=== PATIENT | male | born 1935 | race Caucasian/White ===

== ENCOUNTER → 2020-11-07 11:23 | Outpatient (BNVA) | payer MEDICARE, OTHER, SELFPAY | PROVIDERS: Visit Provider Urology | DX: Z13.89 Encounter for screening for other disorder (principal) | CPT/HCPCS: Q3014 ==

== ENCOUNTER 2022-01-14 10:09 | Outpatient (REF) | payer MEDICARE, OTHER, SELFPAY ==
[2022-01-14 11:37] LABS: PSA,Total (Free>4and<10) 0.23 ng/mL (0.00-4.00)
== END 2022-01-14 10:10 | disposition home or self-care (01) ==
LOC: HO.10HDL 10:09
PROVIDERS: Visit Provider Urology
DX: C61 Malignant neoplasm of prostate (principal); Z12.5 Encounter for screening for malignant neoplasm of prostate
CPT/HCPCS: 36415; 84153

== ENCOUNTER → 2022-01-21 13:30 | Outpatient (BNVA) | payer MEDICARE, OTHER, SELFPAY | PROVIDERS: Visit Provider Urology | DX: R97.21 Rising PSA following treatment for malignant neoplasm of prostate (principal); C61 Malignant neoplasm of prostate; R33.9 Retention of urine, unspecified; Z79.899 Other long term (current) drug therapy | CPT/HCPCS: Q3014 ==

== ENCOUNTER 2022-05-18 12:30 | Outpatient (REF) | payer MEDICARE, OTHER, SELFPAY ==
[2022-05-18 14:18] LABS: Prostate Specific Antigen 0.16 ng/mL (<0.05-4.0)
== END 2022-05-18 12:31 | disposition home or self-care (01) ==
LOC: HO.10HDL 12:30
PROVIDERS: Visit Provider Urology
DX: Z12.5 Encounter for screening for malignant neoplasm of prostate (principal); C61 Malignant neoplasm of prostate
CPT/HCPCS: 36415; 84153

== ENCOUNTER → 2022-05-26 13:03 | Outpatient (BNVA) | payer MEDICARE, OTHER, SELFPAY | PROVIDERS: PCP Internal Medicine Endocrinology, Diabetes & Metabolism; Visit Provider Urology | DX: C61 Malignant neoplasm of prostate (principal) | CPT/HCPCS: 99212 ==

== ENCOUNTER 2022-09-21 12:48 | Outpatient (REF) | payer MEDICARE, OTHER, SELFPAY ==
[2022-09-21 14:44] LABS: Prostate Specific Antigen 0.22 ng/mL (<0.05-4.0)
== END 2022-09-21 12:49 | disposition home or self-care (01) ==
LOC: HO.10HDL 12:48
PROVIDERS: Visit Provider Urology
DX: Z12.5 Encounter for screening for malignant neoplasm of prostate (principal); C61 Malignant neoplasm of prostate
CPT/HCPCS: 36415; 84153

== ENCOUNTER → 2022-10-01 14:54 | Outpatient (BNVA) | payer MEDICARE, OTHER, SELFPAY | PROVIDERS: PCP Internal Medicine Endocrinology, Diabetes & Metabolism; Visit Provider Urology | DX: R97.21 Rising PSA following treatment for malignant neoplasm of prostate (principal) | CPT/HCPCS: Q3014 ==

== ENCOUNTER 2023-01-29 11:05 | Outpatient (REF) | payer MEDICARE, OTHER, SELFPAY | END 2023-01-29 11:06 | disposition home or self-care (01) | LOC: HO.10HDL 11:05 | PROVIDERS: Visit Provider Urology | DX: Z12.5 Encounter for screening for malignant neoplasm of prostate (principal); C61 Malignant neoplasm of prostate | CPT/HCPCS: 36415; 84153 ==

== ENCOUNTER 2023-02-03 13:39 | Outpatient (AMB) | payer MEDICARE, OTHER, SELFPAY ==
--- NOTE | 2023-02-03 13:48 | A.OFFVIS_ITS ---
Intake Intake Visit Reasons: 4M PSA(set) Intake Note: Patient is present for Telephone psa Urology Med:Finasteride, Doxazosin Antibiotic Allergy: None Blood Thinner: Aspirn, Apixaban Allergies dabigatran etexilate [From PRADAXA] Allergy (Intermediate, Verified 02/05/23 09:02) DIZZINESS AND SHORTNESS OF BREATH HPI HPI Comments History of Present Illness Details [place] very pleasant male. He is a patient of Dr. Anton. He is seen for the following urologic issues - prostate cancer Telemedicine Evaluation 15 min Consultation DoxOnApp Amarilis Video attempted Moved to intermittent therapy. Every other month finasteride. PSA staying relatively stable Prostate cancer: Initial therapy 1998 prostatectomy, slight rise in PSA has been managed with intermittent finasteride Prostate cancer was diagnosed January 1999. Diagnosis was reached by needle biopsy, for elevated PSA, PSA at diagnosis 6.9. The [place] grade is 3+4 = 7. TNM Classification of Malignant Tumours (TNM) T2b. The D'Susana (NCCN) risk category is Intermediate Risk (PSA 10-20, Gl 7, T2). Initial therapy included Primary treatment, Prostatectomy (RRP/Robotic) , Additional treatment, Observation. Recent labs included a PSA (prostate-specific antigen) September 2015 , < 0.1, February 2016 0.11, Aug 2016 0.15, Feb 2017 0.145 08/29 0.165, 03/29 0.23 - start finasteride 07/30 0.14, 01/27 0.12, 04/29 0.12 - off finasteride - 04/30 0.16, 10/30 0.32, 05/01 0.38 restart finasteride, 01/30 0.2, 06/02 0.16, 10/01 0.22 off finasteride, 01/31 0.4 Therapeutic plan: Continue with surveillance [facility] Medical History Afib Cerebral infarction Cerebrovascular accident Coronary artery disease Erectile dysfunction following radical prostatectomy Persistent atrial fibrillation Prostate cancer Rising PSA following treatment for malignant neoplasm of prostate Surgical History Hx of aortic aneurysm repair Hx of hernia repair Hx of inguinal hernia repair Hx of prostatectomy Hx of right coronary artery stent placement Family History Unknown No problems noted. Social History Household Members: None Housing: House Do you presently have visiting nurse or other home services: No Alcohol intake: current Alcohol intake frequency: a few times a month Alcohol type: wine Patient Tobacco Use Status: Former Tobacco user Advance Directives Date on File: 12/24/20 service: No Current occupational status: retired Review of Systems Const All systems reviewed & are unremarkable except as noted in HPI and below Reports no additional complaints Resp Reports no additional complaints GI Reports no additional complaints Reports as per HPI Musc Reports no additional complaints Physical Exam Telemedicine evaluation Appropriate responses Regular breathing rate and rhythm HEENT Head: Yes normal to inspection Ears: hearing grossly normal bilaterally Eyes General: appearance normal, both eyes and all related structures Neck Neck: Yes normal visual inspection Chest Chest palpation & inspection: normal inspection of the chest Resp Effort & Inspection: normal respiratory effort and able to speak in complete sentences Assessment & Plan Assessment & Plan (1) Prostate cancer: Comment: doubling time longer than 6 months Code(s): C61 - Malignant neoplasm of prostate Plan Continue Q 6 month review Patient Instructions: Imaging studies, laboratory and physical exam results were discussed and reviewed in detail. No major barriers to patient understanding were identified. An opportunity to ask questions regarding the treatment plan was provided. All questions were answered. The patient expressed understanding and agreement with the above treatment plan. The patient is aware they should contact our office by phone for worsening of their current condition or the appearance of new urologic symptoms. Compliance is encouraged with any medications and followup testing that is ordered. It is a privilege to participate in the urologic care of your patient. If you have any questions or concerns regarding treatment for the above conditions, or other urologic issues, please do not hesitate to contact me. The office telephone contact is [phone]. This note is constructed using voice recognition software. While every effort has been made to ensure accuracy meal miller errors may have been included. Yours sincerely, Dr Bon Deshpande MD, [facility] - Urology Providers of Expert, Compassionate Care for the Genitourinary System Telehealth Telehealth Location of provider rendering services: practice address Location of patient: address on file Patient Identification confirmed using: Name, : Yes Telehealth method: video Patient verbally consented to treatment: Yes Patient verbally consented to billing insurance company: Yes Patient informed of any privacy concerns related to visit: Yes Coding Level of Care Code Tele Est Pt Level 3 (79739) Diagnoses Prostate cancer C61
== END 2023-02-03 14:20 | disposition left against medical advice (07) ==
LOC: HO.HUSH 13:39
PROVIDERS: PCP Internal Medicine Endocrinology, Diabetes & Metabolism; Visit Provider Urology
DX: C61 Malignant neoplasm of prostate (principal)
CPT/HCPCS: 99213

== ENCOUNTER 2023-02-05 09:01 | Outpatient (AMB) | payer MEDICARE, OTHER, SELFPAY ==
--- NOTE | 2023-02-05 09:01 | MHC.OFFVIS ---
Intake Intake Visit Reasons: 4m/PSA Intake Note: Pt presents as a telehealth appt today for a 4 month PSA follow up Allergies dabigatran etexilate [From PRADAXA] Allergy (Intermediate, Verified 02/05/23 09:02) DIZZINESS AND SHORTNESS OF BREATH HPI HPI Comments History of Present Illness Details [place] very pleasant male. He is a patient of Dr. Anton. He is seen for the following urologic issues - prostate cancer Telemedicine Evaluation 15 min Consultation Doximity Amarilis Video attempted Moved to intermittent therapy. Every other month finasteride. PSA staying relatively stable Prostate cancer: Initial therapy 1998 prostatectomy, slight rise in PSA has been managed with intermittent finasteride Prostate cancer was diagnosed January 1999. Diagnosis was reached by needle biopsy, for elevated PSA, PSA at diagnosis 6.9. The [place] [employer] grade is 3+4 = 7. TNM Classification of Malignant Tumours (TNM) T2b. The D'Susana (NCCN) risk category is Intermediate Risk (PSA 10-20, Gl 7, T2). Initial therapy included Primary treatment, Prostatectomy (RRP/Robotic) , Additional treatment, Observation. Recent labs included a PSA (prostate-specific antigen) September 2015 , < 0.1, February 2016 0.11, Aug 2016 0.15, Feb 2017 0.145 08/29 0.165, 03/29 0.23 - start finasteride 07/30 0.14, 01/27 0.12, 04/29 0.12 - off finasteride - 04/30 0.16, 10/30 0.32, 05/01 0.38 restart finasteride, 01/30 0.2, 06/02 0.16, 10/01 0.22 off finasteride, 01/31 0.4 Therapeutic plan: Continue with surveillance [facility] Medical History Afib Cerebral infarction Cerebrovascular accident Coronary artery disease Erectile dysfunction following radical prostatectomy Persistent atrial fibrillation Prostate cancer Rising PSA following treatment for malignant neoplasm of prostate Surgical History Hx of aortic aneurysm repair Hx of hernia repair Hx of inguinal hernia repair Hx of prostatectomy Hx of right coronary artery stent placement Family History Unknown No problems noted. Social History Household Members: None Housing: House Do you presently have visiting nurse or other home services: No Alcohol intake: current Alcohol intake frequency: a few times a month Alcohol type: wine Patient Tobacco Use Status: Former Tobacco user Advance Directives Date on File: 12/24/20 service: No Current occupational status: retired Review of Systems Const All systems reviewed & are unremarkable except as noted in HPI and below Reports no additional complaints Resp Reports no additional complaints GI Reports no additional complaints Reports as per HPI Musc Reports no additional complaints Physical Exam Telemedicine evaluation Appropriate responses Regular breathing rate and rhythm HEENT Head: Yes normal to inspection Ears: hearing grossly normal bilaterally Eyes General: appearance normal, both eyes and all related structures Neck Neck: Yes normal visual inspection Chest Chest palpation & inspection: normal inspection of the chest Resp Effort & Inspection: normal respiratory effort and able to speak in complete sentences Assessment & Plan Assessment & Plan (1) Rising PSA following treatment for malignant neoplasm of prostate: Code(s): R97.21 - Rising PSA following treatment for malignant neoplasm of prostate (2) Prostate cancer: Comment: doubling time longer than 6 months Code(s): C61 - Malignant neoplasm of prostate Plan Continue to follow Orders: Orders Prostate Specific Antigen 4 Months R97.21 - Rising PSA following treatment for malignant neoplasm of prostate Patient Instructions: Imaging studies, laboratory and physical exam results were discussed and reviewed in detail. No major barriers to patient understanding were identified. An opportunity to ask questions regarding the treatment plan was provided. All questions were answered. The patient expressed understanding and agreement with the above treatment plan. The patient is aware they should contact our office by phone for worsening of their current condition or the appearance of new urologic symptoms. Compliance is encouraged with any medications and followup testing that is ordered. It is a privilege to participate in the urologic care of your patient. If you have any questions or concerns regarding treatment for the above conditions, or other urologic issues, please do not hesitate to contact me. The office telephone contact is [phone]. This note is constructed using voice recognition software. While every effort has been made to ensure accuracy gate shear operator errors may have been included. Yours sincerely, Dr Bon Deshpande MD, [facility] - Urology Providers of Expert, Compassionate Care for the Genitourinary System Telehealth Telehealth Location of provider rendering services: practice address Location of patient: address on file Patient Identification confirmed using: Name, : Yes Telehealth method: video Patient verbally consented to treatment: Yes Patient verbally consented to billing insurance company: Yes Patient informed of any privacy concerns related to visit: Yes Coding Level of Care Code Tele Est Pt Level 3 (56651) Diagnoses Rising PSA following treatment for malignant neoplasm of prostate R97.21 Prostate cancer C61
== END 2023-02-05 09:32 | disposition home or self-care (01) ==
LOC: HO.HUSH 09:01
PROVIDERS: PCP Internal Medicine Endocrinology, Diabetes & Metabolism; Visit Provider Urology
DX: R97.21 Rising PSA following treatment for malignant neoplasm of prostate (principal); C61 Malignant neoplasm of prostate
CPT/HCPCS: 99213

== ENCOUNTER → 2023-02-05 09:01 | Outpatient (BNVA) | payer MEDICARE, OTHER, SELFPAY | PROVIDERS: PCP Internal Medicine Endocrinology, Diabetes & Metabolism; Visit Provider Urology | DX: R97.21 Rising PSA following treatment for malignant neoplasm of prostate (principal); C61 Malignant neoplasm of prostate; N52.31 Erectile dysfunction following radical prostatectomy | CPT/HCPCS: Q3014 ==

== ENCOUNTER 2023-06-07 11:51 | Outpatient (REF) | payer MEDICARE, OTHER, SELFPAY ==
[2023-06-07 14:28] LABS: Prostate Specific Antigen 0.35 ng/mL (<0.05-4.0)
== END 2023-06-07 11:52 | disposition home or self-care (01) ==
LOC: HO.10HDL 11:51
PROVIDERS: Visit Provider Urology
DX: R97.21 Rising PSA following treatment for malignant neoplasm of prostate (principal); Z12.5 Encounter for screening for malignant neoplasm of prostate
CPT/HCPCS: 36415; 84153

== ENCOUNTER 2023-06-08 10:07 | Outpatient (AMB) | payer MEDICARE, OTHER, SELFPAY ==
--- NOTE | 2023-06-08 10:16 | MHC.OFFVIS ---
Intake Intake Visit Reasons: PSA Follow up Intake Note: Patient is Present for Follow Up Urology Medication: Finasteride, Doxazosin, Antibiotic Allergies: None Blood Thinners: Apixaban Allergies dabigatran etexilate [From PRADAXA] Allergy (Intermediate, Verified 02/05/23 09:02) DIZZINESS AND SHORTNESS OF BREATH Medication List - Last Reconciled 06/08/23 by Bon Deshpande MD apixaban 5 mg PO BID carvedilol 6.25 mg PO BID doxazosin 4 mg PO DAILY finasteride 5 mg PO DAILY 90 days latanoprost 0.005% 1 drp ophthalmic (eye) BEDTIME losartan 100 mg PO DAILY netarsudil 0.02% (Rhopressa) 0 drps ophthalmic (eye) omeprazole 20 mg PO BID@0630,1630 simvastatin 40 mg PO BEDTIME HPI HPI Comments History of Present Illness Details [place] very pleasant male. He is a patient of Dr. Anton. He is seen for the following urologic issues - prostate cancer PSA staying flat 0.35 Continue intermittent therapy. Every other month finasteride. PSA staying relatively stable Q 4 month PSA Prostate cancer: Initial therapy 1998 prostatectomy, slight rise in PSA has been managed with intermittent finasteride Prostate cancer was diagnosed January 1999. Diagnosis was reached by needle biopsy, for elevated PSA, PSA at diagnosis 6.9. The [place] grade is 3+4 = 7. TNM Classification of Malignant Tumours (TNM) T2b. The D'Susana (NCCN) risk category is Intermediate Risk (PSA 10-20, Gl 7, T2). Initial therapy included Primary treatment, Prostatectomy (RRP/Robotic) , Additional treatment, Observation. Recent labs included a PSA (prostate-specific antigen) September 2015 , < 0.1, February 2016 0.11, Aug 2016 0.15, Feb 2017 0.145 08/29 0.165, 03/29 0.23 - start finasteride 07/30 0.14, 01/27 0.12, 04/29 0.12 - off finasteride - 04/30 0.16, 10/30 0.32, 05/01 0.38 restart finasteride, 01/30 0.2, 06/02 0.16, 10/01 0.22 off finasteride, 01/31 0.4, 11/23 0.35 Therapeutic plan: Continue with surveillance [facility] Medical History Persistent atrial fibrillation Cerebral infarction Afib Cerebrovascular accident Coronary artery disease Rising PSA following treatment for malignant neoplasm of prostate Erectile dysfunction following radical prostatectomy Prostate cancer Surgical History Hx of inguinal hernia repair Hx of aortic aneurysm repair Hx of right coronary artery stent placement Hx of hernia repair Hx of prostatectomy Family History Unknown No problems noted. Household Members: None Housing: House Do you presently have visiting nurse or other home services: No Alcohol intake: current Alcohol intake frequency: a few times a month Alcohol type: wine Patient Tobacco Use Status: Former Tobacco user Advance Directives Date on File: 12/24/20 service: No Current occupational status: retired Review of Systems Const Denies chills and Denies fever(s) Card Reports no additional complaints and Denies syncope Resp Denies cough GI Denies abdominal pain and Denies heartburn Reports as per HPI and Denies change in libido Neuro Denies syncope Psych Denies change in libido Endo Denies change in libido Physical Exam Const General: cooperative, healthy appearing, comfortable and no acute distress Orientation/consciousness: patient oriented x3 HEENT Face and sinus: Yes normal facial exam Mouth: moist mucous membranes Neck Neck: Yes normal visual inspection, Yes full ROM and Yes trachea midline Chest Chest palpation & inspection: normal inspection of the chest Resp Effort & Inspection: normal respiratory effort, able to speak in complete sentences and no respiratory distress GI Inspection: Yes normal to inspection Back/Spine/Pelvis Cervical Spine: normal cervical lordosis Thoracic/Lumbar Spine: thoracic and lumbar spine normal to inspection Skin General skin exam: no rashes or lesions noted Neuro General: patient oriented x3, gait normal, tone normal and moves all extremities Extrem General: Yes normal to inspection and Yes capillary refill normal Assessment & Plan Assessment & Plan (1) Biochemically recurrent castration-sensitive adenocarcinoma of prostate: Code(s): C61 - Malignant neoplasm of prostate; R97.21 - Rising PSA following treatment for malignant neoplasm of prostate; Z19.1 - Hormone sensitive malignancy status Plan Four month follow-up PSA Orders: Orders Prostate Specific Antigen 4 Months R97.21 - Rising PSA following treatment for malignant neoplasm of prostate Patient Instructions: Imaging studies, laboratory and physical exam results were discussed and reviewed in detail. No major barriers to patient understanding were identified. An opportunity to ask questions regarding the treatment plan was provided. All questions were answered. The patient expressed understanding and agreement with the above treatment plan. The patient is aware they should contact our office by phone for worsening of their current condition or the appearance of new urologic symptoms. Compliance is encouraged with any medications and followup testing that is ordered. It is a privilege to participate in the urologic care of your patient. If you have any questions or concerns regarding treatment for the above conditions, or other urologic issues, please do not hesitate to contact me. The office telephone contact is [phone]. This note is constructed using voice recognition software. While every effort has been made to ensure accuracy aircraft cleaning supervisor errors may have been included. Yours sincerely, Dr Bon Deshpande MD, [facility] - Urology Providers of Expert, Compassionate Care for the Genitourinary System Coding Level of Care Code Est Pt Level 3 (02254) Diagnoses Biochemically recurrent castration-sensitive adenocarcinoma of prostate C61; R97.21; Z19.1
== END 2023-06-08 10:36 | disposition home or self-care (01) ==
PROVIDERS: PCP Internal Medicine Endocrinology, Diabetes & Metabolism; Visit Provider Urology
DX: C61 Malignant neoplasm of prostate (principal); R97.21 Rising PSA following treatment for malignant neoplasm of prostate; Z19.1 Hormone sensitive malignancy status
CPT/HCPCS: 99213

== ENCOUNTER → 2023-06-08 10:07 | Outpatient (BNVA) | payer MEDICARE, OTHER, SELFPAY | PROVIDERS: PCP Internal Medicine Endocrinology, Diabetes & Metabolism; Visit Provider Urology | DX: C61 Malignant neoplasm of prostate (principal); R97.21 Rising PSA following treatment for malignant neoplasm of prostate; Z19.1 Hormone sensitive malignancy status | CPT/HCPCS: 99212 ==

== ENCOUNTER 2023-10-07 11:02 | Outpatient (REF) | payer MEDICARE, OTHER, SELFPAY ==
[2023-10-07 14:03] LABS: Prostate Specific Antigen 0.28 ng/mL (<0.05-4.0)
== END 2023-10-07 11:03 | disposition home or self-care (01) ==
LOC: HO.10HDL 11:02
PROVIDERS: Visit Provider Urology
DX: R97.21 Rising PSA following treatment for malignant neoplasm of prostate (principal); Z12.5 Encounter for screening for malignant neoplasm of prostate
CPT/HCPCS: 36415; 84153

== ENCOUNTER 2023-10-12 10:22 | Outpatient (AMB) | payer MEDICARE, OTHER, SELFPAY ==
--- NOTE | 2023-10-12 10:26 | MHC.OFFVIS ---
Intake Intake Visit Reasons: 4M PSA(set)Vm to confirm Intake Note: Patient is Present for Follow Up Urology Medication: Doxazosin, Finasteride, Antibiotic Allergies: None Blood Thinners: Apixaban (Eliquis) Pharmacy: [facility] Allergies dabigatran etexilate [From PRADAXA] Allergy (Intermediate, Verified 10/12/23 10:27) DIZZINESS AND SHORTNESS OF BREATH Medication List - Last Reconciled 10/12/23 by Bon Deshpande MD apixaban 5 mg PO BID carvedilol 6.25 mg PO BID doxazosin 4 mg PO DAILY finasteride 5 mg PO DAILY 90 days furosemide 20 mg PO DAILY latanoprost 0.005% 1 drp ophthalmic (eye) BEDTIME losartan 100 mg PO DAILY netarsudil 0.02% (Rhopressa) 0 drps ophthalmic (eye) omeprazole 20 mg PO BID@0630,1630 simvastatin 40 mg PO BEDTIME HPI HPI Comments History of Present Illness Details [place] very pleasant male. He is a patient of Dr. Anton. He is seen for the following urologic issues - prostate cancer PSA staying flat 0.24 Continue intermittent therapy. Every other month finasteride. PSA staying relatively stable Q 4 month PSA Tells me he has a flag car driver now to help him get around with help at his house every Wednesday. Prostate cancer: Initial therapy 1998 prostatectomy, slight rise in PSA has been managed with intermittent finasteride Prostate cancer was diagnosed January 1999. Diagnosis was reached by needle biopsy, for elevated PSA, PSA at diagnosis 6.9. The [place] grade is 3+4 = 7. TNM Classification of Malignant Tumours (TNM) T2b. The D'Susana (NCCN) risk category is Intermediate Risk (PSA 10-20, Gl 7, T2). Initial therapy included Primary treatment, Prostatectomy (RRP/Robotic) , Additional treatment, Observation. Recent labs included a PSA (prostate-specific antigen) September 2015 , < 0.1, February 2016 0.11, Aug 2016 0.15, Feb 2017 0.145 08/29 0.165, 03/29 0.23 - start finasteride 07/30 0.14, 01/27 0.12, 04/29 0.12 - off finasteride - 04/30 0.16, 10/30 0.32, 10/21 0.38 restart finasteride, 01/30 0.2, 06/02 0.16, 10/01 0.22 off finasteride, 01/31 0.4, 06/03 0.35, 10/02 0.28 Therapeutic plan: Continue with surveillance [facility] Medical History Persistent atrial fibrillation Cerebral infarction Afib Cerebrovascular accident Coronary artery disease Rising PSA following treatment for malignant neoplasm of prostate Erectile dysfunction following radical prostatectomy Prostate cancer Surgical History Hx of inguinal hernia repair Hx of aortic aneurysm repair Hx of right coronary artery stent placement Hx of hernia repair Hx of prostatectomy Family History Unknown No problems noted. Social History Household Members: None Housing: House Do you presently have visiting nurse or other home services: No Alcohol intake: current Alcohol intake frequency: a few times a month Alcohol type: wine Patient Tobacco Use Status: Former Tobacco user Advance Directives Date on File: 12/24/20 service: No Current occupational status: retired Review of Systems Const Denies chills and Denies fever(s) Card Reports no additional complaints and Denies syncope Resp Denies cough GI Denies abdominal pain and Denies heartburn Reports as per HPI and Denies change in libido Neuro Denies syncope Psych Denies change in libido Endo Denies change in libido Physical Exam Const General: cooperative, healthy appearing, comfortable and no acute distress Orientation/consciousness: patient oriented x3 HEENT Face and sinus: Yes normal facial exam Mouth: moist mucous membranes Neck Neck: Yes normal visual inspection, Yes full ROM and Yes trachea midline Chest Chest palpation & inspection: normal inspection of the chest Resp Effort & Inspection: normal respiratory effort, able to speak in complete sentences and no respiratory distress GI Inspection: Yes normal to inspection Back/Spine/Pelvis Cervical Spine: normal cervical lordosis Thoracic/Lumbar Spine: thoracic and lumbar spine normal to inspection Skin General skin exam: no rashes or lesions noted Neuro General: patient oriented x3, gait normal, tone normal and moves all extremities Extrem General: Yes normal to inspection and Yes capillary refill normal Assessment & Plan Assessment & Plan (1) Rising PSA following treatment for malignant neoplasm of prostate: Code(s): R97.21 - Rising PSA following treatment for malignant neoplasm of prostate (2) Prostate cancer: Comment: doubling time longer than 6 months Code(s): C61 - Malignant neoplasm of prostate Plan Four month follow-up PSA tele Orders: Orders Prostate Specific Antigen 4 Months C61 - Malignant neoplasm of prostate Medications: Refilled finasteride 5 mg PO DAILY 90 tabs 0RF 90 days R33.9 - Retention of urine, unspecified, R97.21 - Rising PSA following treatment for malignant neoplasm of prostate Patient Instructions: Imaging studies, laboratory and physical exam results were discussed and reviewed in detail. No major barriers to patient understanding were identified. An opportunity to ask questions regarding the treatment plan was provided. All questions were answered. The patient expressed understanding and agreement with the above treatment plan. The patient is aware they should contact our office by phone for worsening of their current condition or the appearance of new urologic symptoms. Compliance is encouraged with any medications and followup testing that is ordered. It is a privilege to participate in the urologic care of your patient. If you have any questions or concerns regarding treatment for the above conditions, or other urologic issues, please do not hesitate to contact me. The office telephone contact is [phone]. This note is constructed using voice recognition software. While every effort has been made to ensure accuracy veterinary milk specialist errors may have been included. Yours sincerely, Dr Bon Deshpande MD, [facility] - Urology Providers of Expert, Compassionate Care for the Genitourinary System Coding Level of Care Code Est Pt Level 3 (25986) Diagnoses Rising PSA following treatment for malignant neoplasm of prostate R97.21 Prostate cancer C61
== END 2023-10-12 10:43 | disposition home or self-care (01) ==
PROVIDERS: PCP Internal Medicine Endocrinology, Diabetes & Metabolism; Visit Provider Urology
DX: R97.21 Rising PSA following treatment for malignant neoplasm of prostate (principal); C61 Malignant neoplasm of prostate
CPT/HCPCS: 99213

== ENCOUNTER → 2023-10-12 10:22 | Outpatient (BNVA) | payer MEDICARE, OTHER, SELFPAY | PROVIDERS: PCP Internal Medicine Endocrinology, Diabetes & Metabolism; Visit Provider Urology | DX: R97.21 Rising PSA following treatment for malignant neoplasm of prostate (principal); C61 Malignant neoplasm of prostate | CPT/HCPCS: 99212 ==

== ENCOUNTER 2024-01-20 11:28 | Emergency (ER) | payer MEDICARE, OTHER, SELFPAY ==
--- NOTE | ~2024-01-20 | XR_ITS ---
EXAMINATION: XR CHEST CLINICAL INFORMATION: Chest trauma with fall COMPARISON: Chest and RIBS 08/04/2021 TECHNIQUE: Frontal view of the chest was obtained. FINDINGS: Heart size upper limits of normal. Coarse reticulonodular densities are seen in both lungs, right greater than left. Atelectasis is seen at the left lung base. Multiple presumed old bilateral rib fractures are seen but not optimally visualized as this is only a single view. No definite acute fracture is seen although there may be a acute fracture involving the left seventh rib. No other significant abnormality is noted involving the heart, lungs, mediastinum, bony thorax or soft tissues. XR/XR chest 1V IMPRESSION: 1. No acute intrathoracic disease. 2. Multiple old rib fractures. 3. Possible acute left seventh rib fracture. Please correlate with site of point tenderness. If important to know, CT scan could always be performed.
--- NOTE | ~2024-01-20 | XR_ITS ---
EXAMINATION: XR HAND/WRIST, RIGHT CLINICAL INFORMATION: Right wrist and thumb pain COMPARISON: None TECHNIQUE: PA, lateral, and oblique views of the right hand and wrist. FINDINGS: There is generalized osteopenia. There is a fracture at the base of the distal phalanx of the thumb on its lateral aspect slightly displaced and involving the joint space. Marked degenerative changes are seen involving the DIP joint of the second digit with subluxation and deformity. Degenerative change is seen at the first CMC joint as well as at the triscaphe joint. There is chondrocalcinosis with calcification of the triangular fibrocartilage. XR/XR hand wrist RT IMPRESSION: 1. Fracture distal phalanx of the thumb. 2. Degenerative changes as described above.
--- NOTE | ~2024-01-20 | CT_ITS ---
EXAMINATION: CT HEAD W/O IV CONTRAST CT CERVICAL SPINE W/O IV CONTRAST CLINICAL INFORMATION: History of fall, head strike. Neck pain. COMPARISON: 08/04/2021 TECHNIQUE: Head - Contiguous axial imaging of the head was performed from the skull base to the vertex without the administration of intravenous contrast, and axial images are reconstructed at 2 mm and 5 mm slice thickness. Cervical spine - A volumetric, helical CT acquisition of the cervical spine was obtained without contrast; in addition to the standard set of axial images, multiplanar reformatted images were provided in the coronal and sagittal imaging planes. This CT examination was performed using dose optimization techniques as appropriate, variously including the following: *Automated exposure control *Adjustment of mA and/or kV according to patient size (this includes techniques or standardized protocols for targeted exams where dose is matched to indication/reason for exam; i.e. extremities or head) *Use of iterative reconstruction technique DLP: 1045 mGy-cm (total) FINDINGS: HEAD: No acute intracranial findings. Barrett to white matter differentiation is preserved. No evidence of intracranial hemorrhage, major vascular territory infarction, focal mass effect or midline shift. Moderate parenchymal volume loss with commensurate prominence of ventricles and sulci. No hydrocephalus. Chronic patchy hypoattenuation within supratentorial white matter is compatible with sequela of microangiopathy. Again noted are old lacunar infarctions in gangliocapsular regions, including bilateral caudate involvement. The calvarium is intact. The paranasal sinuses and mastoid air cells are well aerated and without air-fluid levels. No acute abnormalities at the orbits or temporomandibular joints. Prior ocular lens extractions. CERVICAL SPINE: The cervical spine has well preserved lordotic curvature. The occipital condyles, dens and atlantodental articulation are intact. There is calcium deposition (likely calcium pyrophosphate dihydrate crystal deposition) along the transverse ligament posterior to the dens. There is osteophyte formation and mild degenerative subarticular cystic change at the anterior atlantodental articulation. The vertebral body heights are maintained. No acute fracture, prevertebral edema or soft tissue hematoma. Multilevel degenerative disc disease and facet osteoarthritis. There is minimal degenerative anterolisthesis at all levels of the cervical spine below C3. No evidence of a traumatic subluxation. There is no significant central spinal canal stenosis. Thyroid gland has a heterogeneous appearance and likely contains multiple small subcentimeter sized nodules. No clinically significant nodule. No thyroid imaging follow-up recommended. Small subpleural opacity of 0.5 cm AP dimension at the anterior left lung apex is unchanged compared to 08/04/2021 and likely represents mild focal scarring. CT/CT cervical spine wo IV con IMPRESSION: * No intracranial hemorrhage or other acute intracranial pathology. * Moderate parenchymal volume loss and chronic patchy hypoattenuation within supratentorial white matter compatible with sequela of microangiopathy (i.e., leukoaraiosis). There are old lacunar infarcts in the gangliocapsular regions. * No fracture or traumatic subluxation in the chronically degenerated cervical spine.
[2024-01-20 11:41] VITALS: BP 118/68; BP 131/70; PULSE 70; PULSE 75; RESP 18; TEMP 36.9; O2SAT 95; O2SAT 97; BMI 23.7
--- NOTE | 2024-01-20 11:43 | ECG_ITS ---
Test Reason : FALL Blood Pressure : / mmHG Vent. Rate : 066 BPM Atrial Rate : 000 BPM P-R Int : 000 ms QRS Dur : 094 ms QT Int : 426 ms P-R-T Axes : 000 -08 -01 degrees QTc Int : 446 ms Atrial fibrillation Abnormal ECG When compared with ECG of 24-DEC-2020 13:40, Inverted T waves have replaced nonspecific T wave abnormality in Inferior leads Referred By: Luis Toledo Electronically Signed By:Wilder Lyons
--- NOTE | 2024-01-20 11:52 | PC.NURSE ---
pt to radiology
--- NOTE | 2024-01-20 11:56 | ED.FALL ---
HPI - Fall General Chief Complaint: Fall Stated Complaint: FALL T-1,R HAND/L HEAD PAIN/ABR PER EMS Time Seen by Provider: 01/20/24 11:38 Source: patient and EMS Mode of arrival: EMS Limitations: no limitations History of Present Illness ED Provider: Tre COFFMAN HPI Narrative: This is an 88 year old male with history of atrial fibrillation, cva and prostate cancer presenting with right hand pain and forehead abrasion after a fall yesterday. He reports he was walking outside and tripped on the sidewalk, denies dizziness, lightheadedness, cp, sob prior to the fall. + head strike, no LOC, he is on apixaban for Afib. He reports right wrist pain and swelling, as well as ecchymosis and pain with ROM of the right thumb. Denies fevers, chills, abdominal pain, chest pain, sob, headache, vision changes, dizziness, weakness. Related Data Home Medications ?Medication ?Instructions ?Recorded ?Confirmed apixaban 5 mg tablet 5 mg PO BID 05/27/20 10/12/23 carvedilol 6.25 mg tablet 6.25 mg PO BID 05/27/20 10/12/23 latanoprost 0.005 % eye drops 1 drp ophthalmic (eye) BEDTIME 05/27/20 10/12/23 omeprazole 20 mg capsule,delayed 20 mg PO BID@0630,1630 05/27/20 10/12/23 release doxazosin 4 mg tablet 4 mg PO DAILY 11/07/20 10/12/23 losartan 100 mg tablet 100 mg PO DAILY 11/07/20 10/12/23 netarsudil 0.02 % eye drops 0 drp ophthalmic (eye) 01/21/22 10/12/23 (Rhopressa) furosemide 20 mg tablet 20 mg PO DAILY 10/12/23 10/12/23 Previous Rx's ?Medication ?Instructions ?Recorded simvastatin 40 mg tablet 40 mg PO BEDTIME #30 tabs 12/25/20 finasteride 5 mg tablet 5 mg PO DAILY 90 days #90 tabs 01/11/24 acetaminophen 325 mg capsule 325 mg PO Q4H PRN pain #30 caps 01/20/24 (Tylenol) Allergies Allergy/AdvReac Type Severity Reaction Status Date / Time dabigatran etexilate Allergy Intermediate DIZZINESS Verified 01/20/24 11:43 [From PRADAXA] AND SHORTNESS OF BREATH Review of Systems Review of Systems: Yes all other systems are reviewed and are negative FOR[facility]LY [facility] Past Medical History Attestation statement: The following information was validated with the patient. Source: old records reviewed and nursing notes reviewed Medical History Persistent atrial fibrillation Cerebral infarction Afib Cerebrovascular accident Coronary artery disease Rising PSA following treatment for malignant neoplasm of prostate Erectile dysfunction following radical prostatectomy Prostate cancer Surgical History Hx of inguinal hernia repair Hx of aortic aneurysm repair Hx of right coronary artery stent placement Hx of hernia repair Hx of prostatectomy Family History Family History Unknown No problems noted. Social History Social History Household Members: None Housing: House Do you presently have visiting nurse or other home services: No Alcohol intake: current Alcohol intake frequency: a few times a month Alcohol type: wine Patient Tobacco Use Status: Former Tobacco user Advance Directives: No Advance Directives Information Provided: Yes Advance Directives Date on File: 12/24/20 service: No Current occupational status: retired Physical Exam Vital Signs: Vital Signs: Last Vital Signs Temp 98.4 F 01/20/24 11:41 Pulse 70 01/20/24 11:41 Resp 18 01/20/24 11:41 BP 131/70 01/20/24 11:41 Pulse Ox 97 01/20/24 11:41 O2 Del Method Room Air 01/20/24 11:41 BMI result Body Mass Index 23.7 vss Appearance: Alert.? Oriented X3.? No acute distress.? Head: Normocephalic, atraumatic, no step-offs or deformities. Abrasion to left side of forehead with mild scabbing. Eyes: Pupils equal, round and reactive to light.? Neck: Normal inspection.? Neck supple.? CVS: Normal heart rate and rhythm.? Pulses normal.? Respiratory: No respiratory distress.? Breath sounds normal.? Skin: Skin warm and dry.? Normal skin color.? Normal skin turgor.? Extremities: No lower extremity edema.? No calf ttp. 5/5 strength to bilateral upper and lower extremities. Moderate ecchymosis and decreased ROM to right thumb secondary to pain. Sensation intact distally. 2+ and symmetric radial pulses bilaterally. Capillary refill < 2 seconds. Back: No midline tenderness, no C-spine tenderness, full range of motion, no CVA tenderness bilaterally Neuro: Oriented X 3.? No motor deficit.? No sensory deficit. CN 2-12 intact. Normal finger to nose, heel to millard. Course Reevaluation(s) Reevaluation #1: CBC unremarkable. Chemistry with no acute findings requiring intervention. BUN and creatinine slightly elevated at baseline. Total bilirubin 1.2 again, appears to be around his baseline. Trop 16 nonischemic ekg. Repeat pending. X-ray of hand fracture to the distal phalanx of thumb. Patient placed in a thumb splint. Chest x-ray with multiple old rib fractures. Possible acute left 7th rib fracture however no point tenderness on exam unlikely acute fracture. Present breath sounds bilaterally. No signs of flail chest or pneumothorax. No acute intrathoracic disease. CT of head and cervical spine with no intracranial hemorrhage or other acute intracranial pathology. Moderate parenchymal volume loss with chronic patchy hypoattenuation. Old lacunar infarcts. No fracture or traumatic subluxations of cervical spine. Repeat troponin pending then patient to be discharged home. No chest pain or shortness of breath at this time. I do not suspect ACS Time: 15:22 Medications Administered Discontinued Medications Generic Name Dose Route Start Last Admin Trade Name Freq PRN Reason Stop Dose Admin Acetaminophen 975 mg 01/20/24 13:17 01/20/24 13:36 Acetaminophen 325 Mg Tablet PO 01/20/24 13:18 975 mg ONCE ONE Administration Diphtheria/Tetanus/Acell Pertussis 0.5 ml 01/20/24 13:18 01/20/24 13:37 Diphth,Pertus(Acell),Tet Adult 0.5 Ml Syringe IM 01/20/24 13:19 0.5 ml .ONCE ONE Administration Medical Decision Making Medical Decision Making [facility] Narrative: 88 yo male with history of atrial fibrillation on apixaban presenting with right wrist and thumb pain after a fall yesterday. PE moderate ecchymosis and decreased ROM to right thumb secondary to pain. Sensation intact distally. 2+ and symmetric radial pulses bilaterally. Capillary refill < 2 seconds. Abrasion to left side of forehead with mild scabbing. Normal finger to nose, heel to millard. Hx and PE concerning for right wrist & finger fracture versus dislocation versus strain. Unlikely acute threat to limb, neurovascular compromise. Will rule out arrhythmia or metabolic disturbance as cause of fall. Unlikely stroke, posterior stroke, ICH, pe, acs. No signs of traumatic injury to chest, abd or pelvis. Plan - imaging, labs, urine, EKG Differential Diagnosis Differential Diagnoses: The differential diagnosis associated with the presentation includes Hx and PE concerning for right wrist & finger fracture versus dislocation versus strain. Unlikely acute threat to limb, neurovascular compromise. Will rule out arrhythmia or metabolic disturbance as cause of fall. Unlikely stroke, posterior stroke, ICH, pe, acs. No signs of traumatic injury to chest, abd or pelvis. Admission/Observation Consideration of admission/observation: Escalation of care including admission/observation considered Lab Data MDM Lab Attestation statement: I reviewed the patient's lab results. 01/20/24 12:24 01/20/24 12:24 Labs: Lab Results 01/20/24 Range/Units 12:24 WBC 6.7 (4.8-10.8) X10*3/uL RBC 4.73 (4.60-5.80) X10*6/uL Hgb 13.6 L (14.0-18.0) g/dl Hct 41.1 L (42.0-52.0) % MCV 86.9 (80.0-98.0) fL MCH 28.8 (27.0-33.0) pg MCHC 33.1 (31.0-36.0) g/dl RDW 13.8 (11.0-16.0) % Plt Count 127 L (160-400) X10*3/uL MPV 11.0 (9.4-12.4) fL Immature Gran % (Auto) 0.1 (0.0-0.4) % Neut % (Auto) 69.0 (45-73) % Lymph % (Auto) 20.2 (20-40) % [place] % (Auto) 8.8 (2-11) % Eos % (Auto) 1.6 (0-4) % Baso % (Auto) 0.3 (0-2) % Lymph # (Auto) 1.4 (1.2-4.9) X10*3/uL [place] # (Auto) 0.6 (0.1-1.2) X10*3/uL Eos # (Auto) 0.1 (0.0-0.4) X10*3/uL Baso # (Auto) 0.0 (0.0-0.2) X10*3/uL Abs Immat Gran (auto) 0.01 (0.00-0.03) X10*3/uL Absolute Neuts (auto) 4.6 (2.0-8.3) x10*3/uL Absolute Nucleated RBC 0.000 (0.0-0.012) X10*3/uL Nucleated RBC % (auto) 0.0 (0.0-0.2) /100WBC Sodium 143 (135-145) mmol/L Potassium 3.5 (3.3-5.1) mmol/L Chloride 109 H (96-108) mmol/L Carbon Dioxide 25 (22-29) mmol/L Anion Gap 13 (12-20) BUN 19 H (9-16) mg/dL Creatinine 1.30 (0.5-1.4) mg/dL Estim Creat Clear Calc 41.0 Estimated GFR 52 Random Glucose 97 (60-115) mg/dL Calcium 8.9 (8.4-10.2) mg/dL Magnesium 1.7 (1.6-2.6) mg/dL Total Bilirubin 1.2 H (0.0-1.0) mg/dL AST 16 (5-37) U/L ALT 10 (0-40) U/L Alkaline Phosphatase 85 (39-117) U/L Troponin I High Sens 16.2 (<3.5-35.0) ng/L Total Protein 6.6 (6.5-8.0) g/dL Albumin 3.6 (3.5-5.0) g/dL Independent Interpretation I performed an independent interpretation of an: EKG (Vent. Rate : 066 BPM Atrial Rate : 000 BPM P-R Int : 000 ms QRS Dur : 094 ms QT Int : 426 ms P-R-T Axes : 000 -08 -01 degrees QTc Int : 446 ms Atrial fibrillation Abnormal ECG When compared with ECG of 24-DEC-2020 13:40, Inverted T waves have replaced nonspecific T wav), Plain X-Ray (XR/XR hand wrist RT IMPRESSION: 1. Fracture distal phalanx of the thumb. 2. Degenerative changes as described above. XR/XR chest 1V IMPRESSION: 1. No acute intrathoracic disease. 2. Multiple old rib fractures. 3. Possible acute left seventh rib fracture. Please correlate with site of point t) and CT Scan (CT/CT head/brain wo IV con IMPRESSION: * No intracranial hemorrhage or other acute intracranial pathology. * Moderate parenchymal volume loss and chronic patchy hypoattenuation within supratentorial white matter compatible with sequela of microangiopathy (i.e., leukoaraiosis). There are old lacuna) Radiology Impression Discussion of test interpretation with radiology: I have reviewed the radiologist's reading. External Record Review External record reviewed: Inpatient record, Office record, Outpatient record, Prior outpatient labs, Prior outpatient radiology, Primary care record and Outside ED record Prescription Management I considered prescription management with: Pain Medication Chronic Conditions Patient?s care impacted by: Hypertension, Cancer and Other (AFib, hypertension, concussion, prostate cancer) Discharge Plan Discharge Clinical Impression: Concussion without loss of consciousness, Fall, Hand pain, right, Pain, wrist Patient Disposition: Still a Patient Instructions: Wrist Injury (ED), Concussion (ED), Post Concussion Syndrome (ED), Arthralgia (ED), Fall Prevention (ED) Additional Instructions: Take your medications as prescribed. If you were prescribed antibiotics today, it is important that you take your medication to their entirety, do not skip any doses, do not finish them early. Follow-up with your primary care provider this week. Return to the emergency department with new or worsening symptoms. Such as fevers, chills, chest pain, shortness of breath, nausea, vomiting, dizziness, headache, vision changes, lethargy In case of emergency call 911 XR/XR hand wrist RT IMPRESSION: 1. Fracture distal phalanx of the thumb. 2. Degenerative changes as described above. CT/CT cervical spine & head wo IV con IMPRESSION: * No intracranial hemorrhage or other acute intracranial pathology. * Moderate parenchymal volume loss and chronic patchy hypoattenuation within supratentorial white matter compatible with sequela of microangiopathy (i.e., leukoaraiosis). There are old lacunar infarcts in the gangliocapsular regions. * No fracture or traumatic subluxation in the chronically degenerated cervical spine. Prescriptions: New acetaminophen [Tylenol] 325 mg capsule 325 mg PO Q4H PRN (Reason: pain) Qty: 30 0RF No Action finasteride 5 mg tablet 5 mg PO DAILY 90 Days Qty: 90 0RF latanoprost 0.005 % Drops 1 drp OPHTHALMIC (EYE) BEDTIME carvedilol 6.25 mg Tablet 6.25 mg PO BID omeprazole 20 mg Capsule,Delayed Release(Dr/Ec) 20 mg PO BID@0630,1630 apixaban 5 mg Tablet 5 mg PO BID simvastatin 40 mg tablet 40 mg PO BEDTIME Qty: 30 0RF doxazosin 4 mg tablet 4 mg PO DAILY losartan 100 mg tablet 100 mg PO DAILY Rhopressa 0.02 % drops 0 drp ophthalmic (eye) furosemide 20 mg tablet 20 mg PO DAILY Referrals: Sekou Anton MD [Primary Care Provider] - 1 day Linda Castañeda MD [Physician] - 1 day Print Language: Armenian
[2024-01-20 12:31] LABS: MANUAL DIFF FLAG NO
[2024-01-20 12:35] LABS: Basophils Percent Auto 0.3 % (0-2); Eosinophils Absolute Auto 0.1 X10*3/uL (0.0-0.4); Eosinophils Percent Auto 1.6 % (0-4); Hematocrit 41.1 % (42.0-52.0); Hemoglobin 13.6 g/dl (14.0-18.0); Imm Gran Abs Auto 0.01 X10*3/uL (0.00-0.03); Imm Gran Pct Auto 0.1 % (0.0-0.4); Lymphocytes Absolute Auto 1.4 X10*3/uL (1.2-4.9); Lymphocytes Percent Auto 20.2 % (20-40); Mean Corpuscular HGB Conc 33.1 g/dl (31.0-36.0); Mean Corpuscular Hemoglobin 28.8 pg (27.0-33.0); Mean Corpuscular Volume 86.9 fL (80.0-98.0); Monocytes Absolute Auto 0.6 X10*3/uL (0.1-1.2); Monocytes Percent Auto 8.8 % (2-11); Neutrophils Absolute Auto 4.6 x10*3/uL (2.0-8.3); Platelet Count 127 X10*3/uL (160-400); Red Blood Count 4.73 X10*6/uL (4.60-5.80); Red Cell Distribution Width 13.8 % (11.0-16.0); White Blood Count 6.7 X10*3/uL (4.8-10.8)
[2024-01-20 12:46] LABS: Alanine Aminotransferase 10 U/L (0-40); Albumin Level 3.6 g/dL (3.5-5.0); Alkaline Phosphatase 85 U/L (39-117); Anion Gap 13 (12-20); Aspartate Amino Transferase 16 U/L (5-37); Bilirubin Total 1.2 mg/dL (0.0-1.0); Blood Urea Nitrogen 19 mg/dL (9-16); Calcium 8.9 mg/dL (8.4-10.2); Carbon Dioxide 25 mmol/L (22-29); Chloride 109 mmol/L (96-108); Estimated Glomerular Filt Rate 52; Glucose Random 97 mg/dL (60-115); Magnesium 1.7 mg/dL (1.6-2.6); Potassium 3.5 mmol/L (3.3-5.1); Sodium 143 mmol/L (135-145); Total Protein 6.6 g/dL (6.5-8.0)
[2024-01-20 12:53] LABS: Troponin-I High Sensitivity 16.2 ng/L (<3.5-35.0)
[2024-01-20] MEDS: Acetaminophen 325 MG TABLET 975 MG PO (13:36)
[2024-01-20] MEDS: Diphth,Pertus(ACell),Tet Adult 0.5 ML SYRINGE IM (13:37)
--- NOTE | 2024-01-20 13:39 | PC.NURSE ---
pt medicated per orders
--- NOTE | 2024-01-20 15:21 | PC.NURSE ---
rt thumb splint applied by provider
[2024-01-20 15:58] LABS: Troponin-I High Sensitivity 15.7 ng/L (<3.5-35.0)
[2024-01-20 17:36] VITALS: BP 132/76; PULSE 72; RESP 18; TEMP 37; O2SAT 98
[2024-01-20 17:42] VITALS: BP 132/76; PULSE 72; RESP 18; TEMP 37; O2SAT 98
== END 2024-01-20 17:43 | disposition home or self-care (01) ==
PROVIDERS: Physician Assistant; Emergency Provider Emergency Medicine; PCP Internal Medicine Endocrinology, Diabetes & Metabolism
DX: S06.0X0A Concussion without loss of consciousness, initial encounter (principal); S00.81XA Abrasion of other part of head, initial encounter; W10.1XXA Fall (on)(from) sidewalk curb, initial encounter; M79.641 Pain in right hand; M25.531 Pain in right wrist; I48.19 Other persistent atrial fibrillation; C61 Malignant neoplasm of prostate; Z79.01 Long term (current) use of anticoagulants; Y93.01 Activity, walking, marching and hiking; Y92.480 Sidewalk as the place of occurrence of the external cause; Y99.9 Unspecified external cause status; Z79.899 Other long term (current) drug therapy
CPT/HCPCS: 36415; 70450; 71045; 72125; 73110; 73130; 80053; 83735; 84484; 85025; 90471; 90715; 93005; 99284

== ENCOUNTER → 2024-01-20 11:43 | Outpatient (BNV) | payer MEDICARE, OTHER, SELFPAY | PROVIDERS: Emergency Provider Emergency Medicine; PCP Internal Medicine Endocrinology, Diabetes & Metabolism; Visit Provider Internal Medicine Cardiovascular Disease | DX: I48.91 Unspecified atrial fibrillation (principal); R94.31 Abnormal electrocardiogram [ECG] [EKG] | CPT/HCPCS: 93010 ==

== ENCOUNTER 2024-02-06 14:08 | Inpatient (IN) | payer MEDICARE, OTHER, SELFPAY ==
--- NOTE | ~2024-02-06 | XR_ITS ---
EXAMINATION: XR KNEE, RIGHT CLINICAL INFORMATION: Status post patellar surgery COMPARISON: 02/06/2024 TECHNIQUE: Four views of the right knee. FINDINGS: Post surgical changes noted. Skin sutures noted. Moderate joint effusion noted. There has been apposition of the patellar fragments since the presurgical study. Vascular calcifications noted. XR/XR knee RT 2V IMPRESSION: Appropriate alignment after patellar surgery.
--- NOTE | ~2024-02-06 | XR_ITS ---
EXAMINATION: XR FINGER, RIGHT CLINICAL INFORMATION: Follow-up fracture. COMPARISON: Radiographs dated 01/20/2024. TECHNIQUE: Frontal, oblique and lateral views of the right thumb. FINDINGS: There is bony demineralization. There is a comminuted fracture of the base of the distal phalanx of the right thumb, with intra-articular extension. Persistent fracture lines are noted, and there is apex posterior angulation at the fracture site. No dislocation is seen. There are incompletely characterized lumbar degenerative changes of the second distal interphalangeal joint. The proximal and distal carpal rows are intact. No focal soft tissue swelling, gas or foreign body is seen. XR/XR finger RT min 2V IMPRESSION: There is stable alignment of a displaced and angulated fracture of the base of the distal phalanx of the right thumb. The fracture line shows intra-articular extension.
--- NOTE | ~2024-02-06 | CT_ITS ---
EXAM: CT HEAD WITHOUT CONTRAST CT CERVICAL SPINE INDICATION: Reason for Exam fall, on eliquis TECHNIQUE: A noncontrast CT scan was performed from the skull base to the vertex. A noncontrast CT scan of the cervical spine was performed from the base of the skull through T1 at 2.5 mm and 0.625 mm collimation. Coronal and sagittal reformats were obtained at the acquisition workstation. This CT examination was performed using dose optimization techniques as appropriate, variously including the following: * Automated exposure control * Adjustment of mA and/or kV according to patient size (this includes techniques or standardized protocols for targeted exams where dose is matched to indication/reason for exam; i.e. extremities or head) * Use of iterative reconstruction technique Dose length product is 1024 mGy-cm. COMPARISON: CT 01/20/2024 FINDINGS: Head: There is no evidence of acute intracranial hemorrhage or edematous territorial infarction. No abnormal mass effect or midline shift is seen. Barrett to white matter differentiation is well preserved. No abnormal extra-axial fluid collections are identified. Commensurate prominence of the ventricles and sulci is compatible with generalized parenchymal volume loss. There is periventricular and subcortical white matter hypoattenuation, most likely representing chronic microangiopathy. Again seen are old lacunar infarctions in the gangliocapsular regions including bilateral caudate involvement. No acute calvarial fracture.. Paranasal sinuses and mastoid air cells are well-aerated. Cervical Spine: Osteopenia. The atlantooccipital and atlantoaxial articulations remain well aligned. There is preserved lordotic curvature.. Atlantodens articulation arthritis anteriorly. Redemonstrated is chronic calcification of the transverse ligament posterior to the dens. Vertebral body heights are maintained. No evidence of acute fracture. Multilevel, chronic moderate-severe disc degenerative changes in the cervical spine. Multilevel facet degeneration. Stable mild anterolisthesis at all levels below the C3 vertebral body, likely degenerative. Central canal is grossly maintained. No significant prevertebral soft tissue swelling. No suspicious thyroid findings. Biapical pleural parenchymal scarring. CT/CT cervical spine wo IV con IMPRESSION: 1. No CT evidence of acute intracranial hemorrhage or edematous acute infarction. 2. Stable, chronic brain findings, detailed above. 3. No CT evidence of acute cervical spine fracture or malalignment. 4. Moderate-severe cervical spondylosis.
--- NOTE | ~2024-02-06 | XR_ITS ---
EXAMINATION: XR KNEE, RIGHT CLINICAL INFORMATION: Pain, swelling and fall. COMPARISON: None available. TECHNIQUE: Four views of the right knee. FINDINGS: There is fracture the inferior patella with large soft tissue swelling and mild joint effusion. The distal femur, proximal tibia and fibula are normal. There is moderate SFA calcification. XR/XR knee RT 4V IMPRESSION: 1. Fracture inferior patella with large soft tissue swelling and mild joint effusion. 2. No additional fractures seen.
[2024-02-06 14:13] VITALS: BP 124/68; BP 140/70; PULSE 73; PULSE 74; RESP 16; TEMP 36.8; O2SAT 94; O2SAT 96; BMI 24.7
--- NOTE | 2024-02-06 14:16 | ED.FALL ---
HPI - Fall General Chief Complaint: Fall Stated Complaint: MECHANICAL FALL, -VE HEAD STRIKE Time Seen by Provider: 02/06/24 14:11 Source: patient Mode of arrival: ambulatory Limitations: no limitations History of Present Illness HPI Narrative: Patient is An 88-year-old male with past medical history of atrial fibrillation on Eliquis, CVA, CAD, prostate cancer presents emergency department via EMS for evaluation after a fall. The etiology is unclear, he states he was outside on his patio he was standing up and he fell. He denies having trip on anything. Denies any preceding symptoms. He reports that he fell forward landing onto his bilateral knees. He has a superficial scrape to his left knee the any reported pain to the left leg. His right knee is painful and swollen. However on examination he is noted to flex the knee to 90 degrees. Denies pain to the right hip/ankle. Denies numbness or tingling. He denies any head strike or loss of consciousness with this fall. He denies dizziness, lightheadedness, chest pain, shortness of breath, nausea vomiting, abdominal pain. He lives alone and this fall was not witnessed by anybody, he pressed his life Alert button. He states he had a fall a couple of weeks ago but he tripped over something while walking outdoors Related Data Home Medications ?Medication ?Instructions ?Recorded ?Confirmed apixaban 5 mg tablet 5 mg PO BID 05/27/20 02/07/24 carvedilol 6.25 mg tablet 6.25 mg PO BID 05/27/20 02/07/24 latanoprost 0.005 % eye drops 1 drp ophthalmic (eye) BEDTIME 05/27/20 02/07/24 omeprazole 20 mg capsule,delayed 20 mg PO BID@0630,1630 05/27/20 02/07/24 release doxazosin 4 mg tablet 4 mg PO DAILY 11/07/20 02/07/24 losartan 100 mg tablet 100 mg PO DAILY 11/07/20 02/07/24 netarsudil 0.02 % eye drops 1 drp ophthalmic (eye) BEDTIME 01/21/22 02/07/24 (Rhopressa) furosemide 20 mg tablet 20 mg PO DAILY 10/12/23 02/07/24 Previous Rx's ?Medication ?Instructions ?Recorded simvastatin 40 mg tablet 40 mg PO BEDTIME #30 tabs 12/25/20 finasteride 5 mg tablet 5 mg PO DAILY 90 days #90 tabs 01/11/24 acetaminophen 325 mg capsule 325 mg PO Q4H PRN pain #30 caps 01/20/24 (Tylenol) Allergies Allergy/AdvReac Type Severity Reaction Status Date / Time dabigatran etexilate Allergy Intermediate DIZZINESS Verified 02/06/24 14:15 [From PRADAXA] AND SHORTNESS OF BREATH PMFSH Past Medical History Attestation statement: The following information was validated with the patient. Source: old records reviewed Medical History Persistent atrial fibrillation Cerebral infarction Afib Cerebrovascular accident Coronary artery disease Rising PSA following treatment for malignant neoplasm of prostate Erectile dysfunction following radical prostatectomy Prostate cancer Surgical History Hx of inguinal hernia repair Hx of aortic aneurysm repair Hx of right coronary artery stent placement Hx of hernia repair Hx of prostatectomy Family History Family History Unknown No problems noted. Social History Social History Household Members: None Housing: House Do you presently have visiting nurse or other home services: No Alcohol intake: current Alcohol intake frequency: a few times a month Alcohol type: wine Patient Tobacco Use Status: Former Tobacco user Smoked in Last 30 Days: No Use of substances other than those prescribed or required for medical reasons: No Advance Directives: No Advance Directives Information Provided: No Advance Directives Date on File: 12/24/20 Do you have a plan to hurt others: No Plan service: No Current occupational status: retired Physical Exam Vital Signs: Vital Signs: Last Vital Signs Temp 98.2 F 02/07/24 06:03 Pulse 77 02/07/24 06:03 Resp 16 02/07/24 06:03 BP 158/89 H 02/07/24 06:03 Pulse Ox 97 02/07/24 06:03 O2 Del Method Room Air 02/07/24 06:03 BMI result Body Mass Index 24.7 Appearance: Alert.?Oriented to person, place and time. No acute distress.?Normal affect. Head: Normocephalic, atraumatic Eyes: Pupils equal, round and reactive to light.? No periorbital ecchymosis ENT: Pharynx normal.??TM normal bilaterally. No mcneil sign Neck: Normal inspection.? Neck supple.??No midline cervical spine tenderness, step-offs, deformities. Hard cervical spine collar is intact CVS: Heart sounds normal. Normal heart rate and rhythm.? Pulses normal.?? Respiratory: No respiratory distress.? Lung sounds clear to auscultation bilaterally?? Abdomen: Soft and non-tender. Normoactive bowel sounds. Skin: Skin warm and dry.? Normal skin color.??? Extremities: No lower extremity edema.? No calf tenderness upon palpation. No pain upon palpation of the tibial plateau. 2+ DP/PT pulse bilaterally. Full range of motion to the left lower extremity. Full range of motion to the right hip and ankle. Right knee with extensive swelling no ecchymosis Neuro: Moves all extremities spontaneously. Sensation intact bilaterally. CN II-XII intact. No focal neuro deficits. Course Reevaluation(s) Reevaluation #1: Toño bandage was applied to the right knee, placed in knee immobilizer. Consulted with Orthopedics, Apoorva Colvin, patient may follow-up outpatient. Signed out to my colleague, Jose MEEK, pending CT head and cervical spine and re-evaluation. I discussed my concern for patient being discharged home given his recent multiple falls, and T lives alone, concern for his ability to get around on his own with using crutches versus a walker and a knee immobilizer. Feel that he would benefit from physical therapy evaluation and case management consultation Reevaluation #2: CT head/C-spine without intracranial bleed or evidence fracture. Vital signs stable. No acute overnight events per nursing staff. Will have nursing staff/pharmacy update patient's med rec. Physician observation continued pending PT/case management consultation and disposition. Time: 06:48 Reevaluation #3: Patient evaluated by physical therapy this morning. PT recommending orthopedic consultation and donjon knee brace placement along with short term rehab. I did discuss case with ortho FANTASMA Moncada who feels that patient would benefit from admission to medicine with plan for surgery on wednesday (in 2 days). I discussed this with hospitalist who has agreed to admission. bed request placed. > med reconciliation reviewed and completed. Eliquis will be held as patient will be having surgery Wednesday. Time: 11:16 Medications Administered Generic Name Dose Route Start Last Admin Trade Name Freq PRN Reason Stop Dose Admin Oxycodone HCl 5 mg 02/06/24 18:40 02/07/24 10:07 Oxycodone Hcl Immed Release 5 Mg Tablet PO 5 mg Q6H PRN Administration Pain, Moderate(Pain Scale 4-6) Discontinued Medications Generic Name Dose Route Start Last Admin Trade Name Freq PRN Reason Stop Dose Admin Oxycodone HCl 5 mg 02/07/24 03:49 02/07/24 03:57 Oxycodone Hcl Immed Release 5 Mg Tablet PO 02/07/24 03:50 5 mg ONCE STA Administration Medical Decision Making Medical Decision Making [facility] Narrative: Patient is An 88-year-old male with past medical history of atrial fibrillation on Eliquis, CVA, CAD, prostate cancer presents emergency department for evaluation after a fall, etiology is unclear. Initially had reported a mechanical fall but he is unable to provide me details surrounding this fall, is not able to identify anything that he may have tripped over. He was seen in the emergency department 01/20/2024 additionally with a fall and subsequent head strike, he states at this time he had tripped over the curb. He was found to have a fracture of the distal phalanx of the right thumb. Given multiple falls in the recent past, and unclear etiology surrounding today's will obtain collapse, EKG, urinalysis, CT head and cervical spine to exclude fracture, subluxation, ICH, SDH. and XR of the right knee concern for fracture versus dislocation versus hemarthrosis, no palpable deformities of the quad muscle, is able to flex anterior thigh, the knee in extension and bend the knee to 90 degrees. Differential Diagnosis Differential Diagnoses: The differential diagnosis associated with the presentation includes (See narrative above) Admission/Observation Consideration of admission/observation: Escalation of care including admission/observation considered Consult Healthcare Provider Management of the patient was discussed with: Media Promoter (See course narrative) Lab Data [facility] Lab Attestation statement: I reviewed the patient's lab results. CBC is without leukocytosis, mild normocytic anemia that does not meet transfusion criteria. No electrolyte derangement. No GILA. LFTs within normal range. 02/06/24 14:32 07/28/24 14:32 Labs: Lab Results 02/06/24 02/07/24 Range/Units 14:32 08:58 WBC 5.7 (4.8-10.8) X10*3/uL RBC 4.36 L (4.60-5.80) X10*6/uL Hgb 12.5 L (14.0-18.0) g/dl Hct 37.5 L (42.0-52.0) % MCV 86.0 (80.0-98.0) fL MCH 28.7 (27.0-33.0) pg MCHC 33.3 (31.0-36.0) g/dl RDW 14.4 (11.0-16.0) % Plt Count 159 L D (160-400) X10*3/uL MPV 11.0 (9.4-12.4) fL Immature Gran % (Auto) 0.4 (0.0-0.4) % Neut % (Auto) 67.0 (45-73) % Lymph % (Auto) 22.2 (20-40) % Ector % (Auto) 8.1 (2-11) % Eos % (Auto) 1.8 (0-4) % Baso % (Auto) 0.5 (0-2) % Lymph # (Auto) 1.3 (1.2-4.9) X10*3/uL Ector # (Auto) 0.5 (0.1-1.2) X10*3/uL Eos # (Auto) 0.1 (0.0-0.4) X10*3/uL Baso # (Auto) 0.0 (0.0-0.2) X10*3/uL Abs Immat Gran (auto) 0.02 (0.00-0.03) X10*3/uL Absolute Neuts (auto) 3.8 (2.0-8.3) x10*3/uL Absolute Nucleated RBC 0.000 (0.0-0.012) X10*3/uL Nucleated RBC % (auto) 0.0 (0.0-0.2) /100WBC PT 15.6 H (11.1-13.3) SEC INR 1.3 H (0.9-1.1) Sodium 139 (135-145) mmol/L Potassium 3.9 (3.3-5.1) mmol/L Chloride 108 (96-108) mmol/L Carbon Dioxide 22 (22-29) mmol/L Anion Gap 13 (12-20) BUN 16 (9-16) mg/dL Creatinine 0.97 (0.5-1.4) mg/dL Estim Creat Clear Calc 54.9 Estimated GFR > 60 Random Glucose 129 H (60-115) mg/dL Calcium 8.7 (8.4-10.2) mg/dL Total Bilirubin 0.8 (0.0-1.0) mg/dL AST 13 (5-37) U/L ALT 9 (0-40) U/L Alkaline Phosphatase 104 (39-117) U/L Troponin I High Sens 9.2 (<3.5-35.0) ng/L Total Protein 6.1 L (6.5-8.0) g/dL Albumin 3.2 L (3.5-5.0) g/dL COVID-19 (MAMIE) Positive A (Negative) COVID-19 Clin Com See Note Independent Interpretation I performed an independent interpretation of an: EKG and Plain X-Ray (Patellar fracture, calcifications rigidity proximal right leg) Interpretation: Rate: 64 Rhythm:? Atrial fibrillation Normal QRS complex.?? ST T wave :??No ST elevation, no ST depression qTC: 425 The study has been interpreted contemporaneously by me. Radiology Impression Discussion of test interpretation with radiology: I have reviewed the radiologist's reading. Radiologist Impression: XR/XR knee RT 4V IMPRESSION: 1. Fracture inferior patella with large soft tissue swelling and mild joint effusion. 2. No additional fractures seen. Independent Historian Clinical information obtained from an independent historian. History obtained from or confirmed by: EMS External Record Review External record reviewed: Outpatient record Discharge Plan Discharge Clinical Impression: Closed patellar sleeve fracture of right knee, Fall Patient Disposition: Admitted As Inpatient Prescriptions: No Action finasteride 5 mg tablet 5 mg PO DAILY 90 Days Qty: 90 0RF latanoprost 0.005 % Drops 1 drp OPHTHALMIC (EYE) BEDTIME carvedilol 6.25 mg Tablet 6.25 mg PO BID omeprazole 20 mg Capsule,Delayed Release(Dr/Ec) 20 mg PO BID@0630,1630 apixaban 5 mg Tablet 5 mg PO BID simvastatin 40 mg tablet 40 mg PO BEDTIME Qty: 30 0RF acetaminophen [Tylenol] 325 mg capsule 325 mg PO Q4H PRN (Reason: pain) Qty: 30 0RF doxazosin 4 mg tablet 4 mg PO DAILY losartan 100 mg tablet 100 mg PO DAILY Rhopressa 0.02 % drops 1 drp ophthalmic (eye) BEDTIME furosemide 20 mg tablet 20 mg PO DAILY Print Language: Brazilian
[2024-02-06 14:39] LABS: MANUAL DIFF FLAG NO
[2024-02-06 14:43] LABS: Basophils Percent Auto 0.5 % (0-2); Eosinophils Absolute Auto 0.1 X10*3/uL (0.0-0.4); Eosinophils Percent Auto 1.8 % (0-4); Hematocrit 37.5 % (42.0-52.0); Hemoglobin 12.5 g/dl (14.0-18.0); Imm Gran Abs Auto 0.02 X10*3/uL (0.00-0.03); Imm Gran Pct Auto 0.4 % (0.0-0.4); Lymphocytes Absolute Auto 1.3 X10*3/uL (1.2-4.9); Lymphocytes Percent Auto 22.2 % (20-40); Mean Corpuscular HGB Conc 33.3 g/dl (31.0-36.0); Mean Corpuscular Hemoglobin 28.7 pg (27.0-33.0); Monocytes Absolute Auto 0.5 X10*3/uL (0.1-1.2); Monocytes Percent Auto 8.1 % (2-11); Neutrophils Absolute Auto 3.8 x10*3/uL (2.0-8.3); Platelet Count 159 X10*3/uL (160-400); Red Blood Count 4.36 X10*6/uL (4.60-5.80); Red Cell Distribution Width 14.4 % (11.0-16.0); White Blood Count 5.7 X10*3/uL (4.8-10.8)
[2024-02-06 14:47] LABS: INTERNATIONAL NORM RATIO 1.3 (0.9-1.1); Prothrombin Time 15.6 SEC (11.1-13.3)
--- NOTE | 2024-02-06 15:08 | PC.NURSE ---
bhanu wrap applied to R knee
[2024-02-06 15:15] LABS: Alanine Aminotransferase 9 U/L (0-40); Albumin Level 3.2 g/dL (3.5-5.0); Alkaline Phosphatase 104 U/L (39-117); Anion Gap 13 (12-20); Aspartate Amino Transferase 13 U/L (5-37); Bilirubin Total 0.8 mg/dL (0.0-1.0); Blood Urea Nitrogen 16 mg/dL (9-16); Calcium 8.7 mg/dL (8.4-10.2); Carbon Dioxide 22 mmol/L (22-29); Chloride 108 mmol/L (96-108); Creatinine Clr Calc Pharmacy 54.9; Estimated Glomerular Filt Rate > 60; Glucose Random 129 mg/dL (60-115); Potassium 3.9 mmol/L (3.3-5.1); Sodium 139 mmol/L (135-145); Total Protein 6.1 g/dL (6.5-8.0)
--- NOTE | 2024-02-06 15:39 | ECG_ITS ---
Test Reason : FALL Blood Pressure : / mmHG Vent. Rate : 064 BPM Atrial Rate : 000 BPM P-R Int : 000 ms QRS Dur : 080 ms QT Int : 412 ms P-R-T Axes : 000 001 001 degrees QTc Int : 425 ms Atrial fibrillation with premature ventricular or aberrantly conducted complexes Cannot rule out Inferior infarct , age undetermined Abnormal ECG When compared with ECG of 20-JAN-2024 12:25, No significant change was found Referred By: Genny Patel Electronically Signed By:Wilder Lyons
[2024-02-06 16:14] VITALS: BP 151/72; PULSE 76; RESP 17; TEMP 36.8; O2SAT 96
[2024-02-06 16:25] LABS: Troponin-I High Sensitivity 9.2 ng/L (<3.5-35.0)
--- NOTE | 2024-02-06 17:26 | PC.NURSE ---
Laura (ex-) jane calloway like to speak with CM when they meet with pt.
--- NOTE | 2024-02-06 17:32 | PC.NURSE ---
FANTASMA Hansen removed C-collar . plan for pt to be PT/CM, pt and family at bedside made aware of plan and questions have been answered
[2024-02-06 18:00] VITALS: BP 184/78; PULSE 99; RESP 14; TEMP 37.2; O2SAT 95
--- NOTE | 2024-02-06 18:32 | PC.NURSE ---
report received from previous RN. patient transported to overflow unit without incident, transferred onto hospital bed for comfort. requesting TV be turned on, patient provided with blanket and pillow for comfort, callbell within reach, requesting medication for pain at this time, ED Provider notified. kitchen to be bringing down meal tray all safety maintained at this time
[2024-02-06] MEDS: oxyCODONE HCl Immed Release 5 MG TABLET PO (18:46)
--- NOTE | 2024-02-06 19:25 | PC.NURSE ---
at 1855 received report from off going nurse, Liliana Polk RN
[2024-02-06 20:00] VITALS: BP 152/90; PULSE 76; RESP 14; TEMP 36.7; O2SAT 96
--- NOTE | 2024-02-06 20:58 | PC.NURSE ---
pt requested the lights off, light shining through the window, from the nurse's desk, unable to turn off the lights at the desk, put a sheet up over his window, to dim the light from the nurse's desk, will cont plan of care
[2024-02-06 22:00] VITALS: BP 144/71; PULSE 66; RESP 14; TEMP 36.5; O2SAT 98
--- NOTE | 2024-02-06 22:59 | PC.NURSE ---
report given to Shanti LIMON
--- NOTE | 2024-02-06 23:35 | MHC.EDTECH ---
This pct assumed care of Patient at 2300 ,Patient was incontinent of urine care given and bedding change ,Call momin within Patient reach .
[2024-02-07] MEDS: oxyCODONE HCl Immed Release 5 MG TABLET PO ×4 (01:03→21:39)
--- NOTE | 2024-02-07 03:49 | PC.NURSE ---
Pt c/o mild to moderate pain. Contacted ED PA for more or another pain medication as pt is stating what he has ordered is not working for him. Spoke to ED PA, see MAR for new order. If pt's pain persists, ED PA suggests asking dayshift RN to have amount of pain med increased at that time. Call momin within reach. Pt AOx3, TE-MOAK, able to make his needs known.
[2024-02-07 06:03] VITALS: BP 158/89; PULSE 77; RESP 16; TEMP 36.8; O2SAT 97
--- NOTE | 2024-02-07 06:03 | MHC.EDTECH ---
0600 rounding done ,vitals taken ,patient was awake all night ,was incontient of urine ,inc care given ,bed pads change and Pt was boosted up in bed Call momin within Patient reach .
--- NOTE | 2024-02-07 07:51 | MHC.EDTECH ---
patient asked for an ice pack. patient was given an ice pack and breakfast. patient comfortable at this time.
--- NOTE | 2024-02-07 08:58 | PC.NURSE ---
Seen by PT, message sent to provider regarding ? ortho consult/ new knee brace
[2024-02-07 09:59] LABS: COVID-19 Test Positive (Negative); IDNOW Serial# 08D9AD1C
--- NOTE | 2024-02-07 11:07 | MHC.CM.ED ---
Received case management consult overnight. Patient came to the ER due to a fall. Found to have right patellar fracture. Physical therapy eval completed. Short term rehab recommended. Received notification from Pao MEEK that patient will be admitted to hospitalist and surgery will be done on Wednesday. Covid swab positive. However, apparently patient was originally Covid positive around 12 of January. Continue to monitor for d/c needs.
--- NOTE | 2024-02-07 11:13 | PC.NURSE ---
Per / patient patient tested positive for covid january 13. Provider aware
--- NOTE | 2024-02-07 11:54 | MHC.EDTECH ---
patient up in bed eating lunch at this time with at bedside.
--- NOTE | 2024-02-07 12:09 | PC.NURSE ---
This RN just spoke with Laura who is concerned that patient needs to have someone in the room or on the phone when discussing important things as pt is [facility] [place] and will sometimes make things up. She would like to be called when ortho or hospitalist come to talk with patient. Number is current in patients chart at this time pt is pending admission/ ortho consult
--- NOTE | 2024-02-07 12:10 | PHA.MEDREC ---
Pharmacy Consult ? Medication Reconciliation Pharmacy has completed the medication reconciliation. Spoke to patient and ex- at bedside to confirm medication list. Patient said he takes latanoprost at bedtime and rhopressa in the morning. Ex said the last dose of his med was yesterday morning since he came in to the hospital around 1pm yesterday 02/06/24 except for the eye drops (she brought in his bottles and he used them both today in the morning).
[2024-02-07] MEDS: Losartan Potassium 50 MG TABLET 100 MG PO (12:55)
[2024-02-07] MEDS: Doxazosin Mesylate 2 MG TABLET 4 MG PO (12:55)
[2024-02-07] MEDS: carvediloL 6.25 MG TABLET PO ×2 (12:56→21:03)
[2024-02-07] MEDS: Furosemide 20 MG TABLET PO (12:56)
[2024-02-07] MEDS: Finasteride 5 MG TABLET PO (12:56)
--- NOTE | 2024-02-07 12:58 | PC.NURSE ---
Patient incont of urine, changed and repositioned. Skin intact under right knee immobilizer. Patient with redness to coccyx, barrier cream applied. Ice pack applied to right knee per patient request
[2024-02-07 13:01] VITALS: BP 146/74; PULSE 86; RESP 18; TEMP 36.6; O2SAT 98
--- NOTE | 2024-02-07 13:27 | PM.IMHP ---
History of Present Illness Date of Service: 02/07/24 Chief Complaint: Fall, platella fracture An 88 years old male with PMH of Afib on Eliquis, hx CVA, CAD, Prostate Ca who presented to the hospital after fall at home. The patient was outside his patio when he lost balance and fell with no reported head injury or loss of consciousness. fell on his knee and felt more pain in the right knee which swollen after the incident. No chest pain, palpitations, SOB, nausea, vomiting, diarrhea or urinary symptoms. In ED images were consistent with closed patellar sleeve fracture in right knee. Tested positive for Covid, no symptoms of acute infection, he was tested positive earlier this month on 01/13 at home and did not get any treatment for it. Admitted for planned surgical intervention by Orthopedic team on Wednesday. Review of Systems Review of Systems: No fever, chills or weakness No chest pain, palpitation No shortness of breath or coughing No abdominal pain, nausea or vomiting No urinary symptoms Knee pain, right PMFSH Medical History Persistent atrial fibrillation Cerebral infarction Afib Cerebrovascular accident Coronary artery disease Rising PSA following treatment for malignant neoplasm of prostate Erectile dysfunction following radical prostatectomy Prostate cancer Family History Unknown No problems noted. Surgical History Hx of inguinal hernia repair Hx of aortic aneurysm repair Hx of right coronary artery stent placement Hx of hernia repair Hx of prostatectomy Social History Household Members: None Housing: House Do you presently have visiting nurse or other home services: No Alcohol intake: current Alcohol intake frequency: a few times a month Alcohol type: wine Patient Tobacco Use Status: Former Tobacco user Smoked in Last 30 Days: No Use of substances other than those prescribed or required for medical reasons: No Advance Directives: No Advance Directives Information Provided: No Advance Directives Date on File: 12/24/20 Do you have a plan to hurt others: No Plan service: No Current occupational status: retired Meds Allergies Allergy/AdvReac Type Severity Reaction Status Date / Time dabigatran etexilate Allergy Intermediate DIZZINESS Verified 02/06/24 14:15 [From PRADAXA] AND SHORTNESS OF BREATH Active Medications: Current Medications Acetaminophen (Acetaminophen 325 Mg Tablet) 650 mg PO Q6H PRN PRN Reason: Pain, Mild (Pain Scale 1-3), fever or headache Atorvastatin Calcium (Atorvastatin Calcium 20 Mg Tablet) 20 mg PO BEDTIME [facility] Calcium Carbonate (Calcium Carbonate 750 Mg Tab.Chew) 750 mg PO Q4H PRN PRN Reason: Heartburn Carvedilol (Carvedilol 6.25 Mg Tablet) 6.25 mg PO BID [facility]; Protocol Last Admin: 02/07/24 12:56 Dose: 6.25 mg Doxazosin Mesylate (Doxazosin Mesylate 2 Mg Tablet) 4 mg PO DAILY [facility]; Protocol Last Admin: 02/07/24 12:55 Dose: 4 mg Enoxaparin Sodium (Enoxaparin Sodium 40 Mg/0.4 Ml Syringe) 80 mg SUBCUT Q12H MELISSA Stop: 02/08/24 16:00 Finasteride (Finasteride 5 Mg Tablet) 5 mg PO DAILY [facility] Last Admin: 02/07/24 12:56 Dose: 5 mg Furosemide (Furosemide 20 Mg Tablet) 20 mg PO DAILY [facility]; Protocol Last Admin: 02/07/24 12:56 Dose: 20 mg Latanoprost (Latanoprost 0.005 % Ophth Jennifer 2.5 Ml Drops) 1 drop EYE-BOTH BEDTIME [facility] Losartan Potassium (Losartan Potassium 50 Mg Tablet) 100 mg PO DAILY [facility]; Protocol Last Admin: 02/07/24 12:55 Dose: 100 mg Magnesium Hydroxide (Milk Of Magnesia 30 Ml Oral.Susp) 30 ml PO DAILY PRN PRN Reason: Constipation Melatonin (Melatonin 3 Mg Tablet) 6 mg PO BEDTIME PRN PRN Reason: Insomnia Non-Formulary Medication (Netarsudil [Rhopressa]) 1 drop EYE-BOTH DAILY [facility] Omeprazole (Omeprazole 20 Mg Capsule.Dr) 20 mg PO BID@0630,1630 [facility] Ondansetron HCl (Ondansetron Hcl 4 Mg/2 Ml Vial) 4 mg IVPUSH Q8H PRN PRN Reason: Nausea and Vomiting Oxycodone HCl (Oxycodone Hcl Immed Release 5 Mg Tablet) 5 mg PO Q6H PRN PRN Reason: Pain, Moderate(Pain Scale 4-6) Last Admin: 02/07/24 10:07 Dose: 5 mg Sodium Chloride (0.9 % Sodium Chloride Flush 3 Ml Syringe) 3 ml IVFLUSH [facility] Medications ?Medication ?Instructions ?Recorded ?Confirmed ?Last Taken ?Type apixaban 5 mg tablet 5 mg PO BID 05/27/20 02/07/24 02/06/24 History carvedilol 6.25 mg tablet 6.25 mg PO BID 05/27/20 02/07/24 02/06/24 History latanoprost 0.005 % eye drops 1 drp ophthalmic (eye) BEDTIME 05/27/20 02/07/24 02/07/24 History omeprazole 20 mg capsule,delayed 20 mg PO BID@0630,1630 05/27/20 02/07/24 02/06/24 History release doxazosin 4 mg tablet 4 mg PO DAILY 11/07/20 02/07/24 02/06/24 History losartan 100 mg tablet 100 mg PO DAILY 11/07/20 02/07/24 02/06/24 History netarsudil 0.02 % eye drops 1 drp ophthalmic (eye) DAILY 01/21/22 02/07/24 02/07/24 History (Rhopressa) furosemide 20 mg tablet 20 mg PO DAILY 10/12/23 02/07/24 02/06/24 History Physical Exam Vital Signs and Narrative: Vital Signs: Last Vital Signs Temp 98 F 02/07/24 13:01 Pulse 86 02/07/24 13:01 Resp 18 02/07/24 13:01 BP 146/74 H 02/07/24 13:01 Pulse Ox 98 02/07/24 13:01 O2 Del Method Room Air 02/07/24 13:01 BMI result Body Mass Index 24.7 Const: Other: Constitutional : Awake, interactive, not in distress Neck : Normal inspection, Supple Cardiovascular : irregular irregular , no JVP, no lower extremity edema Respiratory : good bilateral air entry, no crackles, wheezes or rhonchi Gastrointestinal: soft, lax, Normal bowel sounds, Non tender Skin : Warm, Dry Skeletal: right knee in stabilizer Neurological : Alert & oriented x3, No focal deficit Results Labs 02/06/24 14:32 02/06/24 14:32 Labs: Laboratory Results - last 24 hr 02/06/24 02/07/24 14:32 08:58 MCV 86.0 MCH 28.7 MCHC 33.3 RDW 14.4 Plt Count 159 L D MPV 11.0 Immature Gran % (Auto) 0.4 Neut % (Auto) 67.0 Lymph % (Auto) 22.2 [place] % (Auto) 8.1 Eos % (Auto) 1.8 Baso % (Auto) 0.5 Lymph # (Auto) 1.3 [place] # (Auto) 0.5 Eos # (Auto) 0.1 Baso # (Auto) 0.0 Abs Immat Gran (auto) 0.02 Absolute Neuts (auto) 3.8 Absolute Nucleated RBC 0.000 Nucleated RBC % (auto) 0.0 PT 15.6 H INR 1.3 H Anion Gap 13 Estim Creat Clear Calc 54.9 Estimated GFR > 60 Random Glucose 129 H Calcium 8.7 Total Bilirubin 0.8 AST 13 ALT 9 Alkaline Phosphatase 104 Troponin I High Sens 9.2 Total Protein 6.1 L Albumin 3.2 L COVID-19 (MAMIE) Positive A COVID-19 Clin Com See Note Imaging Radiologist's Impressions: Impressions Knee X-Ray 02/06/24 14:49 IMPRESSION: 1. Fracture inferior patella with large soft tissue swelling and mild joint effusion. 2. No additional fractures seen. Cervical Spine CT 02/06/24 15:[address]: [address] evidence of acute intracranial hemorrhage or edematous acute infarction. 2. Stable, chronic brain findings, detailed above. 3. No CT evidence of acute cervical spine fracture or malalignment. 4. Moderate-severe cervical spondylosis. Head CT 02/06/24 15:[address]: [address] evidence of acute intracranial hemorrhage or edematous acute infarction. 2. Stable, chronic brain findings, detailed above. 3. No CT evidence of acute cervical spine fracture or malalignment. 4. Moderate-severe cervical spondylosis. Assessment and Plan (1) Fall: Status: Acute (2) Closed patellar sleeve fracture of right knee: Status: Acute (3) Prostate cancer: Status: Acute Plan An 88 years old male with PMH of Afib on Eliquis, hx CVA, CAD, Prostate Ca who presented to the hospital after fall at home. Right Patellar fracture 2/2 fall seen on images Orthopedic team following Oxycodone PRN PT eval post op persistent Afib Hold Eliquis Lovenox full dose for now rate controlled; continue Carvedilol +ve Covid19 test Likely positive from reported infection earlier this month 01/13 at home keep isolated monitoring if any new symptoms for now Hx Prostate Ca Finasteride and Doxazosin HTN Losartan DVT PPx Lovenox The patient will need at least 2 overnight hospital stay for treatment of patellar fracture with surgery planned on Wednesday Quality Stroke Does the patient have a stroke diagnosis?: No VTE Prior VTE?: No VTE Risk Level:: Medical - moderate - high VTE Device Contraindication: Treatment Not Indicated VTE Drug Contraindication: N/A - Med Ordered
[2024-02-07] MEDS: Acetaminophen 325 MG TABLET 650 MG PO ×2 (14:08→17:20)
[2024-02-07] MEDS: Calcium Carbonate 750 MG TAB.CHEW PO (14:08)
[2024-02-07] MEDS: Enoxaparin Sodium 40 MG/0.4 ML SYRINGE 80 MG SUBCUT (14:08)
--- NOTE | 2024-02-07 17:17 | PC.NURSE ---
Patient declined for IV to be placed, stating he does not want one at this time
[2024-02-07] MEDS: Omeprazole 20 MG CAPSULE.DR PO (17:19)
--- NOTE | 2024-02-07 18:27 | PC.NURSE ---
Ate well for dinner , denies pain or discomfort
[2024-02-07 18:55] VITALS: BP 126/78; PULSE 81; RESP 18; TEMP 36.8; O2SAT 95
[2024-02-07 20:52] VITALS: BP 161/78; PULSE 88; RESP 20; TEMP 36.3; O2SAT 96
[2024-02-07 21:03] VITALS: BP 161/78; PULSE 88
[2024-02-07] MEDS: Atorvastatin Calcium 20 MG TABLET PO (21:03)
[2024-02-07 21:31] VITALS: BMI 23.7
[2024-02-07] MEDS: Melatonin 3 MG TABLET 6 MG PO (21:38)
[2024-02-08] VITALS: BP 163/84; PULSE 81; RESP 18; TEMP 37.3; O2SAT 98
[2024-02-08] MEDS: Enoxaparin Sodium 40 MG/0.4 ML SYRINGE 80 MG SUBCUT ×2 (01:24→14:28)
[2024-02-08] MEDS: 0.9 % Sodium Chloride Flush 3 ML SYRINGE IVFLUSH ×3 (01:33→17:46)
[2024-02-08 04:00] VITALS: BP 145/76; PULSE 78; RESP 16; TEMP 36.2; O2SAT 94
[2024-02-08] MEDS: Omeprazole 20 MG CAPSULE.DR PO ×2 (06:02→17:46)
[2024-02-08 06:50] LABS: Hematocrit 34.4 % (42.0-52.0); Hemoglobin 11.3 g/dl (14.0-18.0); Mean Corpuscular HGB Conc 32.8 g/dl (31.0-36.0); Mean Corpuscular Hemoglobin 28.5 pg (27.0-33.0); Mean Corpuscular Volume 86.9 fL (80.0-98.0); Mean Platelet Volume 11.2 fL (9.4-12.4); Platelet Count 151 X10*3/uL (160-400); Red Blood Count 3.96 X10*6/uL (4.60-5.80); Red Cell Distribution Width 14.7 % (11.0-16.0); White Blood Count 9.5 X10*3/uL (4.8-10.8)
[2024-02-08 07:01] LABS: Anion Gap 10 (12-20); Blood Urea Nitrogen 12 mg/dL (9-16); Calcium 8.9 mg/dL (8.4-10.2); Carbon Dioxide 24 mmol/L (22-29); Chloride 106 mmol/L (96-108); Creatinine Clr Calc Pharmacy 64.2; Estimated Glomerular Filt Rate > 60; Glucose Random 113 mg/dL (60-115); Sodium 136 mmol/L (135-145)
[2024-02-08 07:28] VITALS: BP 141/75; PULSE 66; RESP 16; TEMP 36.5; O2SAT 96
[2024-02-08] MEDS: Acetaminophen 325 MG TABLET 650 MG PO ×3 (09:38→17:46)
--- NOTE | 2024-02-08 09:39 | P.CONOP_ITS ---
History of Present Illness HPI Consult date: 02/08/24 <Antwan Colvin PA-C - Last Filed: 02/08/24 09:43> Chief complaint: patellar fracture <Anwtan Colvin PA-C - Last Filed: 02/08/24 09:43> Narrative: 88 years old male with PMH of Afib on Eliquis, hx CVA, CAD, Prostate Ca who presented to the hospital after fall at home. He was admitted to the medical service and orthopedics was consulted for further recommendations. Per ED records; The patient was outside his patio when he lost balance and fell with no reported head injury or loss of consciousness. fell on his knee and felt more pain in the right knee which swollen after the incident. No chest pain, palpitations, SOB, nausea, vomiting, diarrhea or urinary symptoms. In ED images were consistent with closed patellar sleeve fracture in right knee. He does ambulate. <Antwan Colvin PA-C - Last Filed: 02/08/24 09:43> Review of Systems 2 Review of Systems: Yes all other systems are reviewed and are negative < Antwan Colvin PA-C - Last Filed: 02/08/24 09:43> PMFSH Past Medical History Medical History: Medical History Persistent atrial fibrillation Cerebral infarction Afib Cerebrovascular accident Coronary artery disease Rising PSA following treatment for malignant neoplasm of prostate Erectile dysfunction following radical prostatectomy Prostate cancer <Antwan Colvin PA-C - Last Filed: 02/08/24 09:43> Family History Family History: Family History Unknown No problems noted. <Antwan Colvin PA-C - Last Filed: 02/08/24 09:43> Surgical History Surgical History: Surgical History Hx of inguinal hernia repair Hx of aortic aneurysm repair Hx of right coronary artery stent placement Hx of hernia repair Hx of prostatectomy <Antwan Colvin PA-C - Last Filed: 02/08/24 09:43> Social History Social History: Social History Household Members: None Housing: House Do you presently have visiting nurse or other home services: No Alcohol intake: current Alcohol intake frequency: a few times a month Alcohol type: wine Patient Tobacco Use Status: Former Tobacco user e-Cigarette/Vaping Use: Never Used Second Hand Smoke Exposure: No Advance Directives Date on File: 12/24/20 service: No Current occupational status: retired <Antwan Colvin PA-C - Last Filed: 02/08/24 09:43> Meds Allergies/Adverse reactions: Allergies Allergy/AdvReac Type Severity Reaction Status Date / Time dabigatran etexilate Allergy Intermediate DIZZINESS Verified 02/06/24 14:15 [From PRADAXA] AND SHORTNESS OF BREATH <Antwan Colvin PA-C - Last Filed: 02/08/24 09:43> Active Medications: Current Medications Acetaminophen (Acetaminophen 325 Mg Tablet) 650 mg PO TIDWM MELISSA Last Admin: 02/07/24 17:20 Dose: 650 mg Atorvastatin Calcium (Atorvastatin Calcium 20 Mg Tablet) 20 mg PO BEDTIME [facility] Last Admin: 02/07/24 21:03 Dose: 20 mg Calcium Carbonate (Calcium Carbonate 750 Mg Tab.Chew) 750 mg PO Q4H PRN PRN Reason: Heartburn Last Admin: 02/07/24 14:08 Dose: 750 mg Carvedilol (Carvedilol 6.25 Mg Tablet) 6.25 mg PO BID [facility]; Protocol Last Admin: 02/07/24 21:03 Dose: 6.25 mg Doxazosin Mesylate (Doxazosin Mesylate 2 Mg Tablet) 4 mg PO DAILY [facility]; Protocol Last Admin: 02/07/24 12:55 Dose: 4 mg Enoxaparin Sodium (Enoxaparin Sodium 40 Mg/0.4 Ml Syringe) 80 mg SUBCUT Q12H MELISSA Stop: 02/08/24 16:00 Last Admin: 02/08/24 01:24 Dose: 80 mg Finasteride (Finasteride 5 Mg Tablet) 5 mg PO DAILY [facility] Last Admin: 02/07/24 12:56 Dose: 5 mg Furosemide (Furosemide 20 Mg Tablet) 20 mg PO DAILY [facility]; Protocol Last Admin: 02/07/24 12:56 Dose: 20 mg Latanoprost (Latanoprost 0.005 % Ophth Jennifer 2.5 Ml Drops) 1 drop EYE-BOTH BEDTIME [facility] Last Admin: 02/07/24 23:17 Dose: Not Given Losartan Potassium (Losartan Potassium 50 Mg Tablet) 100 mg PO DAILY [facility]; Protocol Last Admin: 02/07/24 12:55 Dose: 100 mg Magnesium Hydroxide (Milk Of Magnesia 30 Ml Oral.Susp) 30 ml PO DAILY PRN PRN Reason: Constipation Melatonin (Melatonin 3 Mg Tablet) 6 mg PO BEDTIME PRN PRN Reason: Insomnia Last Admin: 02/07/24 21:38 Dose: 6 mg Pt Own (Netarsudil [ Rhopressa] 0.02 % Drops) 1 drop EYE-BOTH DAILY [facility] Omeprazole (Omeprazole 20 Mg Capsule.Dr) 20 mg PO BID@0630,1630 [facility] Last Admin: 02/08/24 06:02 Dose: 20 mg Ondansetron HCl (Ondansetron Hcl 4 Mg/2 Ml Vial) 4 mg IVPUSH Q8H PRN PRN Reason: Nausea and Vomiting Oxycodone HCl (Oxycodone Hcl Immed Release 5 Mg Tablet) 5 mg PO Q6H PRN PRN Reason: Pain, Moderate(Pain Scale 4-6) Last Admin: 02/07/24 21:39 Dose: 5 mg Sodium Chloride (0.9 % Sodium Chloride Flush 3 Ml Syringe) 3 ml IVFLUSH QSHIFT [facility] Last Admin: 02/08/24 01:33 Dose: 3 ml <Antwan Colvin PA-C - Last Filed: 02/08/24 09:43> Home medications: Home Medications ?Medication ?Instructions ?Recorded ?Confirmed ?Last Taken ?Type apixaban 5 mg tablet 5 mg PO BID 05/27/20 02/07/24 02/06/24 History carvedilol 6.25 mg tablet 6.25 mg PO BID 05/27/20 02/07/24 02/06/24 History latanoprost 0.005 % eye drops 1 drp ophthalmic (eye) BEDTIME 05/27/20 02/07/24 02/07/24 History omeprazole 20 mg capsule,delayed 20 mg PO BID@0630,1630 05/27/20 02/07/24 02/06/24 History release doxazosin 4 mg tablet 4 mg PO DAILY 11/07/20 02/07/24 02/06/24 History losartan 100 mg tablet 100 mg PO DAILY 11/07/20 02/07/24 02/06/24 History netarsudil 0.02 % eye drops 1 drp ophthalmic (eye) DAILY 01/21/22 02/07/24 02/07/24 History (Rhopressa) furosemide 20 mg tablet 20 mg PO DAILY 10/12/23 02/07/24 02/06/24 History <Antwan Colvin PA-C - Last Filed: 02/08/24 09:43> Physical Exam 2 Vital Signs: Vital Signs: Last Vital Signs Temp 97.7 F 02/08/24 07:28 Pulse 66 02/08/24 07:28 Resp 16 02/08/24 07:28 BP 141/75 H 02/08/24 07:28 Pulse Ox 96 02/08/24 07:28 O2 Del Method Room Air 02/08/24 07:28 BMI result Body Mass Index 23.7 <MEGHNA Weinberg Last Filed: 02/08/24 09:43> Const: General: cooperative, healthy appearing, comfortable and no acute distress <MEGHNA Weinberg Last Filed: 02/08/24 09:43> Extrem: Other: Right knee in immobilizer There is swelling and ecchymosis to the right patella No open wounds Tenderness to palpation he is able to plantar and dorsi flex the foot call supple non tender NVI <MEGHNA Weinberg Last Filed: 02/08/24 09:43> Results Labs Result Diagrams: 02/09/24 06:04 02/09/24 06:04 <MEGHNA Weinberg Last Filed: 02/08/24 09:43> Labs: Abnormal lab results 02/07/24 02/08/24 Range/Units 08:58 05:48 RBC 3.96 L (4.60-5.80) X10*6/uL Hgb 11.3 L (14.0-18.0) g/dl Hct 34.4 L (42.0-52.0) % Plt Count 151 L (160-400) X10*3/uL Anion Gap 10 L (12-20) COVID-19 (MAMIE) Positive A (Negative) H & H 02/06/24 02/08/24 Range/Units 14:32 05:48 Hgb 12.5 L 11.3 L (14.0-18.0) g/dl Hct 37.5 L 34.4 L (42.0-52.0) % Coagulation 02/06/24 Range/Units 14:32 INR 1.3 H (0.9-1.1) All other labs normal. <Antwan Colvin PA-C - Last Filed: 02/08/24 09:43> Assessment and Plan (1) Closed patellar sleeve fracture of right knee: Status: Acute <Antwan Colvin PA-C - Last Filed: 02/08/24 09:43> I discussed the case with Dr Frederick and explained the extent of the injury to the patient and options available which include surgical intervention. I explained the procedure in detail along with the length of recovery and rehab course. I explained the risk, benefits and alternatives. Risk including, but not limited to infection, blood clots, bleeding, non union or malunion and nerve/tissue damage to surrounding areas. I answered all their questions and with their understanding they have consented to move forward with Operative Fixation of the right patella. The patient will be T&S, med clearance obtained and NPO after midnight. Eliquis on hold. <Antwan Colvin PA-C - Last Filed: 02/08/24 09:43> This is an active 88 yuo M with a right patella fracture that is displaced. He ambulates and is active. I discussed treatment options with him including the risks of stiffness, infection, pain as well as the prolonged recovery. I discussed the risks benefits and alternatives including but not limited to the risk of pain, infection, stiffness, need for further surgery as well as potential medical complications such as blood clots, pulmonary embolism and cardiac complications. I answered all questions and with their understanding they have consented to move forward with Operative Fixation of the right patella. The patient will be T&S, med clearance obtained and NPO after midnight. Eliquis on hold. <Shravan Frederick MD - Last Filed: 02/09/24 14:05> Procedures Date of Service Date of Service: 02/08/24 <Antwan Colvin PA-C - Last Filed: 02/08/24 09:43> 02/09/24 <Shravan Frederick MD - Last Filed: 02/09/24 14:05>
[2024-02-08] MEDS: Doxazosin Mesylate 2 MG TABLET 4 MG PO (09:41)
[2024-02-08] MEDS: carvediloL 6.25 MG TABLET PO ×2 (09:42→20:51)
[2024-02-08] MEDS: Furosemide 20 MG TABLET PO (09:42)
[2024-02-08] MEDS: Losartan Potassium 50 MG TABLET 100 MG PO (09:42)
[2024-02-08] MEDS: Finasteride 5 MG TABLET PO (09:43)
--- NOTE | 2024-02-08 10:33 | P.PNIM_ITS ---
Subjective Subjective Date of Service: 02/08/24 Interval History: seen and evaluated complaining of right knee pain no other overnight events Review of Systems Knee pain, right Review of Systems: Yes all other systems are reviewed and are negative Physical Exam 2 Vital Signs: Vital Signs: Last Vital Signs Temp 97.7 F 02/08/24 07:28 Pulse 66 02/08/24 07:28 Resp 16 02/08/24 07:28 BP 141/75 H 02/08/24 07:28 Pulse Ox 96 02/08/24 07:28 O2 Del Method Room Air 02/08/24 07:28 BMI result Body Mass Index 23.7 Const: Other: Constitutional : Awake, interactive, not in distress Neck : Normal inspection, Supple Cardiovascular : irregular irregular , no JVP, no lower extremity edema Respiratory : good bilateral air entry, no crackles, wheezes or rhonchi Gastrointestinal: soft, lax, Normal bowel sounds, Non tender Skin : Warm, Dry Skeletal: right knee in stabilizer Neurological : Alert & oriented x3, No focal deficit Objective Data Active Medications Acetaminophen (Acetaminophen 325 Mg Tablet) 650 mg PO TIDWM [facility] Last Admin: 02/08/24 09:38 Dose: 650 mg Documented By: XOCHITL Atorvastatin Calcium (Atorvastatin Calcium 20 Mg Tablet) 20 mg PO BEDTIME [facility] Last Admin: 02/07/24 21:03 Dose: 20 mg Documented By: ZAC Calcium Carbonate (Calcium Carbonate 750 Mg Tab.Chew) 750 mg PO Q4H PRN PRN Reason: Heartburn Last Admin: 02/07/24 14:08 Dose: 750 mg Documented By: HAIDER Carvedilol (Carvedilol 6.25 Mg Tablet) 6.25 mg PO BID [facility]; Protocol Last Admin: 02/08/24 09:42 Dose: 6.25 mg Documented By: XOCHITL Doxazosin Mesylate (Doxazosin Mesylate 2 Mg Tablet) 4 mg PO DAILY [facility]; Protocol Last Admin: 02/08/24 09:41 Dose: 4 mg Documented By: XOCHITL Enoxaparin Sodium (Enoxaparin Sodium 40 Mg/0.4 Ml Syringe) 80 mg SUBCUT Q12H [facility] Stop: 02/08/24 16:00 Last Admin: 02/08/24 01:24 Dose: 80 mg Documented By: ZAC Finasteride (Finasteride 5 Mg Tablet) 5 mg PO DAILY [facility] Last Admin: 02/08/24 09:43 Dose: 5 mg Documented By: XOCHITL Furosemide (Furosemide 20 Mg Tablet) 20 mg PO DAILY [facility]; Protocol Last Admin: 02/08/24 09:42 Dose: 20 mg Documented By: XOCHITL Cefazolin Sodium/Dextrose (Ancef) 2 gm in 50 mls @ 100 mls/hr IV PREOP ONE Stop: 02/09/24 16:59 Latanoprost (Latanoprost 0.005 % Ophth Jennifer 2.5 Ml Drops) 1 drop EYE-BOTH BEDTIME [facility] Last Admin: 02/07/24 23:17 Dose: Not Given Documented By: ZAC Non-Admin Reason: Med Not Available Losartan Potassium (Losartan Potassium 50 Mg Tablet) 100 mg PO DAILY [facility]; Protocol Last Admin: 02/08/24 09:42 Dose: 100 mg Documented By: XOCHITL Magnesium Hydroxide (Milk Of Magnesia 30 Ml Oral.Susp) 30 ml PO DAILY PRN PRN Reason: Constipation Melatonin (Melatonin 3 Mg Tablet) 6 mg PO BEDTIME PRN PRN Reason: Insomnia Last Admin: 02/07/24 21:38 Dose: 6 mg Documented By: ZAC Pt Own (Netarsudil [ Rhopressa] 0.02 % Drops) 1 drop EYE-BOTH DAILY [facility] Omeprazole (Omeprazole 20 Mg Capsule.Dr) 20 mg PO BID@0630,1630 [facility] Last Admin: 02/08/24 06:02 Dose: 20 mg Documented By: ZAC Ondansetron HCl (Ondansetron Hcl 4 Mg/2 Ml Vial) 4 mg IVPUSH Q8H PRN PRN Reason: Nausea and Vomiting Oxycodone HCl (Oxycodone Hcl Immed Release 5 Mg Tablet) 5 mg PO Q6H PRN PRN Reason: Pain, Moderate(Pain Scale 4-6) Last Admin: 02/07/24 21:39 Dose: 5 mg Documented By: ZAC Sodium Chloride (0.9 % Sodium Chloride Flush 3 Ml Syringe) 3 ml IVFLUSH QSHIFT [facility] Last Admin: 02/08/24 09:53 Dose: 3 ml Documented By: XOCHITL Labs 02/08/24 05:48 02/08/24 05:48 Labs: Laboratory Results - last 24 hr 02/08/24 05:48 MCV 86.9 MCH 28.5 MCHC 32.8 RDW 14.7 Plt Count 151 L MPV 11.2 Absolute Nucleated RBC 0.000 Nucleated RBC % (auto) 0.0 Anion Gap 10 L Estim Creat Clear Calc 64.2 Estimated GFR > 60 Random Glucose 113 Calcium 8.9 Assessment and Plan (1) Fall: Status: Acute (2) Closed patellar sleeve fracture of right knee: Status: Acute Plan An 88 years old male with PMH of Afib on Eliquis, hx CVA, CAD, Prostate Ca who presented to the hospital after fall at home. Pre-Op evaluation No ACS, no chest pain non emergent surgery, RCRI of 1; Proceed to OR with no further testing needed. carries moderate risk for alfredito- operative cardiopulmonary risks Right Patellar fracture 2/2 fall seen on images Orthopedic team following Oxycodone PRN PT eval post op +ve Covid19 test positive from reported infection earlier this month 01/13 at home with no active symptoms suggestive of acute illness. DC isolation persistent Afib Hold Eliquis Lovenox full dose for now rate controlled; continue Carvedilol Hx Prostate Ca Finasteride and Doxazosin HTN Losartan DVT PPx Lovenox The patient will need overnight hospital stay for treatment of patellar fracture with surgery planned on Wednesday Quality Stroke Does the patient have a stroke diagnosis?: No VTE Prior VTE?: No VTE Risk Level:: Medical - moderate - high VTE Device Contraindication: Treatment Not Indicated VTE Drug Contraindication: N/A - Med Ordered
[2024-02-08] MEDS: NETARSUDIL 0.02% 1 EACH EYE-BOTH ×2 (11:34→20:50)
--- NOTE | 2024-02-08 14:52 | MHC.CM.PN ---
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 GOAL FOR DC IS PT REPORTS HIS PCP RETIRED FROM [facility], PT WAS ASSIGNED NEW PCP HCP ON FILE VERIFIED.
[2024-02-08 15:27] VITALS: BP 117/60; PULSE 76; RESP 16; TEMP 36.1; O2SAT 92
[2024-02-08 20:00] VITALS: BP 110/52; PULSE 68; RESP 20; TEMP 36.4; O2SAT 99
[2024-02-08] MEDS: Atorvastatin Calcium 20 MG TABLET PO (20:50)
[2024-02-08 20:51] VITALS: BP 110/52; PULSE 68
[2024-02-09] VITALS (20 sets, daily range): BP systolic 87–165; BP diastolic 41–84; PULSE 70–92; RESP 16–20; TEMP 36.3–37.3; O2SAT 95–100
[2024-02-09] MEDS: 0.9 % Sodium Chloride Flush 3 ML SYRINGE IVFLUSH ×4 (00:38→21:25)
[2024-02-09] MEDS: Omeprazole 20 MG CAPSULE.DR PO ×2 (06:02→17:04)
[2024-02-09 06:50] LABS: Hemoglobin 11.2 g/dl (14.0-18.0); Mean Corpuscular HGB Conc 32.9 g/dl (31.0-36.0); Mean Corpuscular Hemoglobin 28.6 pg (27.0-33.0); Mean Corpuscular Volume 86.7 fL (80.0-98.0); Mean Platelet Volume 11.7 fL (9.4-12.4); Platelet Count 160 X10*3/uL (160-400); Red Blood Count 3.92 X10*6/uL (4.60-5.80); Red Cell Distribution Width 14.7 % (11.0-16.0); White Blood Count 9.2 X10*3/uL (4.8-10.8)
[2024-02-09 07:06] LABS: Anion Gap 10 (12-20); Blood Urea Nitrogen 13 mg/dL (9-16); Calcium 8.9 mg/dL (8.4-10.2); Carbon Dioxide 27 mmol/L (22-29); Chloride 103 mmol/L (96-108); Creatinine Clr Calc Pharmacy 64.2; Estimated Glomerular Filt Rate > 60; Glucose Random 111 mg/dL (60-115); Potassium 3.6 mmol/L (3.3-5.1); Sodium 136 mmol/L (135-145)
[2024-02-09] MEDS: Losartan Potassium 50 MG TABLET 100 MG PO (08:26)
[2024-02-09] MEDS: Finasteride 5 MG TABLET PO (08:26)
[2024-02-09] MEDS: Furosemide 20 MG TABLET PO (08:27)
[2024-02-09] MEDS: Doxazosin Mesylate 2 MG TABLET 4 MG PO (08:27)
[2024-02-09] MEDS: Acetaminophen 325 MG TABLET 650 MG PO ×2 (08:27→17:04)
[2024-02-09] MEDS: carvediloL 6.25 MG TABLET PO ×2 (08:28→21:21)
--- NOTE | 2024-02-09 09:27 | HO.PM.IMPN ---
Subjective Subjective Date of Service: 02/09/24 Interval History: seen and evaluated Pain under better control Plan for right knee surgery today no other overnight events Review of Systems Review of Systems: Yes all other systems are reviewed and are negative Physical Exam Vital Signs: Vital Signs: Last Vital Signs Temp 97.8 F 02/09/24 07:25 Pulse 92 02/09/24 08:28 Resp 18 02/09/24 07:25 BP 165/76 H 02/09/24 08:28 Pulse Ox 96 02/09/24 07:25 O2 Del Method Room Air 02/09/24 07:25 BMI result Body Mass Index 23.7 Const: Other: Constitutional : Awake, interactive, not in distress Neck : Normal inspection, Supple Cardiovascular : irregular irregular , no JVP, no lower extremity edema Respiratory : good bilateral air entry, no crackles, wheezes or rhonchi Gastrointestinal: soft, lax, Normal bowel sounds, Non tender Skin : Warm, Dry Skeletal: right knee in stabilizer Neurological : Alert & oriented x3, No focal deficit Objective Data Active Medications Acetaminophen (Acetaminophen 325 Mg Tablet) 650 mg PO TIDWM [facility] Last Admin: 02/09/24 08:27 Dose: 650 mg Documented By: NHUNG Atorvastatin Calcium (Atorvastatin Calcium 20 Mg Tablet) 20 mg PO BEDTIME [facility] Last Admin: 02/08/24 20:50 Dose: 20 mg Documented By: ZAC Calcium Carbonate (Calcium Carbonate 750 Mg Tab.Chew) 750 mg PO Q4H PRN PRN Reason: Heartburn Last Admin: 02/07/24 14:08 Dose: 750 mg Documented By: HAIDER Carvedilol (Carvedilol 6.25 Mg Tablet) 6.25 mg PO BID [facility]; Protocol Last Admin: 02/09/24 08:28 Dose: 6.25 mg Documented By: NHUNG Doxazosin Mesylate (Doxazosin Mesylate 2 Mg Tablet) 4 mg PO DAILY M[facility]SA; Protocol Last Admin: 02/09/24 08:27 Dose: 4 mg Documented By: NHUNG Finasteride (Finasteride 5 Mg Tablet) 5 mg PO DAILY [facility] Last Admin: 02/09/24 08:26 Dose: 5 mg Documented By: NHUNG Furosemide (Furosemide 20 Mg Tablet) 20 mg PO DAILY [facility]; Protocol Last Admin: 02/09/24 08:27 Dose: 20 mg Documented By: NHUNG Cefazolin Sodium/Dextrose (Ancef) 2 gm in 50 mls @ 100 mls/hr IV PREOP ONE Stop: 02/09/24 16:59 Latanoprost (Latanoprost 0.005 % Ophth Jennifer 2.5 Ml Drops) 1 drop EYE-BOTH BEDTIME [facility] Last Admin: 02/08/24 22:07 Dose: Not Given Documented By: ZAC Non-Admin Reason: Med Not Available Losartan Potassium (Losartan Potassium 50 Mg Tablet) 100 mg PO DAILY [facility]; Protocol Last Admin: 02/09/24 08:26 Dose: 100 mg Documented By: NHUNG Magnesium Hydroxide (Milk Of Magnesia 30 Ml Oral.Susp) 30 ml PO DAILY PRN PRN Reason: Constipation Melatonin (Melatonin 3 Mg Tablet) 6 mg PO BEDTIME PRN PRN Reason: Insomnia Last Admin: 02/07/24 21:38 Dose: 6 mg Documented By: ZAC Pt Own (Netarsudil [ Rhopressa] 0.02 % Drops) 1 drop EYE-BOTH DAILY [facility] Last Admin: 02/08/24 20:50 Dose: 1 drop Documented By: ZAC Omeprazole (Omeprazole 20 Mg Capsule.Dr) 20 mg PO BID@0630,1630 [facility] Last Admin: 02/09/24 06:02 Dose: 20 mg Documented By: ZAC Ondansetron HCl (Ondansetron Hcl 4 Mg/2 Ml Vial) 4 mg IVPUSH Q8H PRN PRN Reason: Nausea and Vomiting Oxycodone HCl (Oxycodone Hcl Immed Release 5 Mg Tablet) 5 mg PO Q6H PRN PRN Reason: Pain, Moderate(Pain Scale 4-6) Last Admin: 02/07/24 21:39 Dose: 5 mg Documented By: ZAC Sodium Chloride (0.9 % Sodium Chloride Flush 3 Ml Syringe) 3 ml IVFLUSH QSHIFT [facility] Last Admin: 02/09/24 08:28 Dose: 3 ml Documented By: NHUNG Labs 02/09/24 06:04 02/09/24 06:04 Labs: Laboratory Results - last 24 hr 02/09/24 06:04 MCV 86.7 MCH 28.6 MCHC 32.9 RDW 14.7 Plt Count 160 MPV 11.7 Absolute Nucleated RBC 0.000 Nucleated RBC % (auto) 0.0 Anion Gap 10 L Estim Creat Clear Calc 64.2 Estimated GFR > 60 Random Glucose 111 Calcium 8.9 Assessment and Plan (1) Fall: Status: Acute (2) Closed patellar sleeve fracture of right knee: Status: Acute Plan An 88 years old male with PMH of Afib on Eliquis, hx CVA, CAD, Prostate Ca who presented to the hospital after fall at home. Right Patellar fracture 2/2 fall Orthopedic team following for surgery today Oxycodone PRN PT eval post op +ve Covid19 test positive from reported infection earlier this month 01/13 at home with no active symptoms suggestive of acute illness. DC isolation persistent Afib Hold Eliquis Lovenox full dose for now rate controlled; continue Carvedilol Hx Prostate Ca Finasteride and Doxazosin HTN Losartan DVT PPx Lovenox The patient will need overnight hospital stay for treatment of patellar fracture with surgery planned today and post surgery care Quality Stroke Does the patient have a stroke diagnosis?: No VTE Prior VTE?: No VTE Risk Level:: Medical - moderate - high VTE Device Contraindication: Treatment Not Indicated VTE Drug Contraindication: N/A - Med Ordered
--- NOTE | 2024-02-09 10:51 | P.CONAN_ITS ---
HPI - Anesthesia Eval Consult details Narrative: right patellar OrIf PMFSH Active Problems Active Problems: All Active Problems Fall (Acute) Closed patellar sleeve fracture of right knee (Acute) Biochemically recurrent castration-sensitive adenocarcinoma of prostate (Acute) Contusion of left hip region (Acute) Afib (Acute) Rising PSA following treatment for malignant neoplasm of prostate (Acute) Prostate cancer (Acute) Past Medical History Medical History Persistent atrial fibrillation Cerebral infarction Afib Cerebrovascular accident Coronary artery disease Rising PSA following treatment for malignant neoplasm of prostate Erectile dysfunction following radical prostatectomy Prostate cancer Family History Family History Unknown No problems noted. Family history of problems with anesthesia: No Surgical History Surgical History Hx of inguinal hernia repair Hx of aortic aneurysm repair Hx of right coronary artery stent placement Hx of hernia repair Hx of prostatectomy History of Problems with Anesthesia: No Social History Social History Household Members: None Housing: House Do you presently have visiting nurse or other home services: No Alcohol intake: current Alcohol intake frequency: a few times a month Alcohol type: wine Patient Tobacco Use Status: Former Tobacco user e-Cigarette/Vaping Use: Never Used Second Hand Smoke Exposure: No Advance Directives Date on File: 12/24/20 service: No Current occupational status: retired Meds Allergies Allergy/AdvReac Type Severity Reaction Status Date / Time dabigatran etexilate Allergy Intermediate DIZZINESS Verified 02/06/24 14:15 [From PRADAXA] AND SHORTNESS OF BREATH Active Medications: Current Medications Acetaminophen (Acetaminophen 325 Mg Tablet) 650 mg PO TIDWM [facility] Last Admin: 02/09/24 08:27 Dose: 650 mg Atorvastatin Calcium (Atorvastatin Calcium 20 Mg Tablet) 20 mg PO BEDTIME [facility] Last Admin: 02/08/24 20:50 Dose: 20 mg Calcium Carbonate (Calcium Carbonate 750 Mg Tab.Chew) 750 mg PO Q4H PRN PRN Reason: Heartburn Last Admin: 02/07/24 14:08 Dose: 750 mg Carvedilol (Carvedilol 6.25 Mg Tablet) 6.25 mg PO BID [facility]; Protocol Last Admin: 02/09/24 08:28 Dose: 6.25 mg Doxazosin Mesylate (Doxazosin Mesylate 2 Mg Tablet) 4 mg PO DAILY [facility]; Protocol Last Admin: 02/09/24 08:27 Dose: 4 mg Finasteride (Finasteride 5 Mg Tablet) 5 mg PO DAILY [facility] Last Admin: 02/09/24 08:26 Dose: 5 mg Furosemide (Furosemide 20 Mg Tablet) 20 mg PO DAILY [facility]; Protocol Last Admin: 02/09/24 08:27 Dose: 20 mg Cefazolin Sodium/Dextrose (Ancef) 2 gm in 50 mls @ 100 mls/hr IV PREOP ONE Stop: 02/09/24 16:59 Latanoprost (Latanoprost 0.005 % Ophth Jennifer 2.5 Ml Drops) 1 drop EYE-BOTH BEDTIME [facility] Last Admin: 02/08/24 22:07 Dose: Not Given Losartan Potassium (Losartan Potassium 50 Mg Tablet) 100 mg PO DAILY [facility]; Protocol Last Admin: 02/09/24 08:26 Dose: 100 mg Magnesium Hydroxide (Milk Of Magnesia 30 Ml Oral.Susp) 30 ml PO DAILY PRN PRN Reason: Constipation Melatonin (Melatonin 3 Mg Tablet) 6 mg PO BEDTIME PRN PRN Reason: Insomnia Last Admin: 02/07/24 21:38 Dose: 6 mg Pt Own (Netarsudil [ Rhopressa] 0.02 % Drops) 1 drop EYE-BOTH DAILY [facility] Last Admin: 02/08/24 20:50 Dose: 1 drop Omeprazole (Omeprazole 20 Mg Capsule.Dr) 20 mg PO BID@0630,1630 [facility] Last Admin: 02/09/24 06:02 Dose: 20 mg Ondansetron HCl (Ondansetron Hcl 4 Mg/2 Ml Vial) 4 mg IVPUSH Q8H PRN PRN Reason: Nausea and Vomiting Oxycodone HCl (Oxycodone Hcl Immed Release 5 Mg Tablet) 5 mg PO Q6H PRN PRN Reason: Pain, Moderate(Pain Scale 4-6) Last Admin: 02/07/24 21:39 Dose: 5 mg Sodium Chloride (0.9 % Sodium Chloride Flush 3 Ml Syringe) [facility] Last Admin: 02/09/24 08:28 Dose: 3 ml Home Medications ?Medication ?Instructions ?Recorded ?Confirmed ?Last Taken ?Type apixaban 5 mg tablet 5 mg PO BID 05/27/20 02/07/24 02/06/24 History carvedilol 6.25 mg tablet 6.25 mg PO BID 05/27/20 02/07/24 02/06/24 History latanoprost 0.005 % eye drops 1 drp ophthalmic (eye) BEDTIME 05/27/20 02/07/24 02/07/24 History omeprazole 20 mg capsule,delayed 20 mg PO BID@0630,1630 05/27/20 02/07/24 02/06/24 History release doxazosin 4 mg tablet 4 mg PO DAILY 11/07/20 02/07/24 02/06/24 History losartan 100 mg tablet 100 mg PO DAILY 11/07/20 02/07/24 02/06/24 History netarsudil 0.02 % eye drops 1 drp ophthalmic (eye) DAILY 01/21/22 02/07/24 02/07/24 History (Rhopressa) furosemide 20 mg tablet 20 mg PO DAILY 10/12/23 02/07/24 02/06/24 History Exam Height,Weight and Vital Signs: Height 5 ft 11 in Weight 77 kg Last Vital Signs Temp 98.4 F 02/09/24 10:21 Pulse 82 02/09/24 10:21 Resp 16 02/09/24 10:21 BP 165/76 H 02/09/24 08:28 Pulse Ox 96 02/09/24 10:21 O2 Del Method Room Air 02/09/24 10:21 Pertinent Lab Results Pertinent Lab Results: Laboratory Tests 02/06/24 02/07/24 02/08/24 14:32 08:58 05:48 WBC 5.7 9.5 RBC 4.36 L 3.96 L Hgb 12.5 L 11.3 L Hct 37.5 L 34.4 L MCV 86.0 86.9 MCH 28.7 28.5 MCHC 33.3 32.8 RDW 14.4 14.7 Plt Count 159 L D 151 L MPV 11.0 11.2 Immature Gran % (Auto) 0.4 Neut % (Auto) 67.0 Lymph % (Auto) 22.2 [place] % (Auto) 8.1 Eos % (Auto) 1.8 Baso % (Auto) 0.5 Lymph # (Auto) 1.3 [place] # (Auto) 0.5 Eos # (Auto) 0.1 Baso # (Auto) 0.0 Abs Immat Gran (auto) 0.02 Absolute Neuts (auto) 3.8 Absolute Nucleated RBC 0.000 0.000 Nucleated RBC % (auto) 0.0 0.0 PT 15.6 H INR 1.3 H Sodium 139 136 Potassium 3.9 4.0 Chloride 108 106 Carbon Dioxide 22 24 Anion Gap 13 10 L BUN 16 12 Creatinine 0.97 0.83 Estim Creat Clear Calc 54.9 64.2 Estimated GFR > 60 > 60 Random Glucose 129 H 113 Calcium 8.7 8.9 Total Bilirubin 0.8 AST 13 ALT 9 Alkaline Phosphatase 104 Troponin I High Sens 9.2 Total Protein 6.1 L Albumin 3.2 L COVID-19 (MAMIE) Positive A COVID-19 Clin Com See Note 02/09/24 06:04 WBC 9.2 RBC 3.92 L Hgb 11.2 L Hct 34.0 L MCV 86.7 MCH 28.6 MCHC 32.9 RDW 14.7 Plt Count 160 MPV 11.7 Immature Gran % (Auto) Neut % (Auto) Lymph % (Auto) [place] % (Auto) Eos % (Auto) Baso % (Auto) Lymph # (Auto) [place] # (Auto) Eos # (Auto) Baso # (Auto) Abs Immat Gran (auto) Absolute Neuts (auto) Absolute Nucleated RBC 0.000 Nucleated RBC % (auto) 0.0 PT INR Sodium 136 Potassium 3.6 Chloride 103 Carbon Dioxide 27 Anion Gap 10 L BUN 13 Creatinine 0.83 Estim Creat Clear Calc 64.2 Estimated GFR > 60 Random Glucose 111 Calcium 8.9 Total Bilirubin AST ALT Alkaline Phosphatase Troponin I High Sens Total Protein Albumin COVID-19 (MAMIE) COVID-19 Clin Com Airway Mallampati Class: II TM Dist: <=3cm Neck ROM: Poor Heart: afib Lungs: cta Assessment and Plan Assessment Anesthesia Assessment: Anesthesia Plan Discussed Final Anesthetic Review Family History of Problems with Anesthesia: No History of Problems with Anesthesia: No NPO: Yes ASA Class: III and Emergency Final Preanesthetic Review: No Changes in Pt Med Stat, Meds/Allgs Chart Reviewed, Consent Obtained/Reviewed and Anes Risks/Benef Reviewed Patient Risk: High Procedure Risk: Intermediate Anesthetic Plan Anesthetic Plan: GA Disposition: Standard PACU
--- NOTE | 2024-02-09 11:02 | PC.NURSE ---
incont of urine. repositioned two assist. aware of plan of care and options. okay to proceddw ti surgery. right knee swollen and hematoma noted. md river aware.
--- NOTE | 2024-02-09 11:12 | PC.NURSE ---
left forearm 20g iv patnent, no pain and no leaking. asymptomatic.
--- NOTE | 2024-02-09 11:54 | MHC.SHP ---
Pre-Procedural Eval Section A - 24 Hr Update-Section A only Date of Service: 02/09/24 The patient is an INPATIENT: No Changes since office visit: No Cold of Flu in the past 2 weeks, No New Medical Problems, No Changes in Medication and No Patient answered all questions The patient has been examined within 24 hours of the surgical procedure. The History & Physical has been completed within 30 days and I have reviewed it.: Yes Section B - Complete if H&P > 30 days Chief Complaint: patellar fracture Allergies: Allergies Allergy/AdvReac Type Severity Reaction Status Date / Time dabigatran etexilate Allergy Intermediate DIZZINESS Verified 02/06/24 14:15 [From PRADAXA] AND SHORTNESS OF BREATH Plan I have reviewed the history and physical and performed a pertinent physical examination on my patient. No changes have occurred unless specified. Time Spent With Patient Time: Total time managing care of this patient today ____ minutes.
--- NOTE | 2024-02-09 12:33 | MHC.CM.PN ---
EMR reviewed and per MD rounds, pt is not medically cleared for discharge due to management of patellar fracture with surgery pending today.
--- NOTE | 2024-02-09 14:05 | P.BOP_ITS ---
Brief Operative Note Date of Service: 02/09/24 Pre-op diagnosis: right patella fracture Post-op diagnosis: same Procedure: ORIF right patella Implants: [employer] Helacoilk double loaded x2, Micro-raptor 2.75 x 2 Surgeon: Shravan Frederick MD Anesthesia: GETA and regional Was an Concrete Pipe Plant Supervisor used for this Procedure?: Yes Concrete Pipe Plant Supervisor: Ramonita Gaston Estimated blood loss (mL): 75 Tourniquet time (min): 45 IV fluids (mL): 800 Pathology: none sent Condition: stable Disposition: PACU
[2024-02-09] MEDS: Atorvastatin Calcium 20 MG TABLET PO (21:21)
[2024-02-10] VITALS (8 sets, daily range): BP systolic 92–136; BP diastolic 54–67; PULSE 62–82; RESP 18; TEMP 36.2–37.4; O2SAT 96–99
[2024-02-10] MEDS: Omeprazole 20 MG CAPSULE.DR PO ×2 (06:08→16:59)
[2024-02-10 06:58] LABS: Hematocrit 32.3 % (42.0-52.0); Hemoglobin 10.5 g/dl (14.0-18.0); Mean Corpuscular HGB Conc 32.5 g/dl (31.0-36.0); Mean Corpuscular Hemoglobin 28.5 pg (27.0-33.0); Mean Corpuscular Volume 87.5 fL (80.0-98.0); Platelet Count 144 X10*3/uL (160-400); Red Blood Count 3.69 X10*6/uL (4.60-5.80); Red Cell Distribution Width 14.9 % (11.0-16.0); White Blood Count 10.6 X10*3/uL (4.8-10.8)
[2024-02-10 07:06] LABS: Anion Gap 11 (12-20); Blood Urea Nitrogen 20 mg/dL (9-16); Carbon Dioxide 29 mmol/L (22-29); Chloride 102 mmol/L (96-108); Creatinine Clr Calc Pharmacy 59.9; Estimated Glomerular Filt Rate > 60; Glucose Random 109 mg/dL (60-115); Potassium 3.7 mmol/L (3.3-5.1); Sodium 138 mmol/L (135-145)
--- NOTE | 2024-02-10 07:32 | PM.PNORT ---
Subjective Subjective Date of Service: 02/10/24 Interval history: Patient is an 88-year-old male who is postop day 1 for open reduction internal fixation of right patella. Today, patient reports that he is feeling well, and isn't experiencing significantly less pain than he did prior to surgery. The patient reports that he only experiences discomfort when attempts to move his leg. Patient inquires as to what the procedure that was performed on his knee yesterday entailed. No other acute complaints or concerns at this time. Physical Exam Vital Signs: Vital Signs: Last Vital Signs Temp 97.2 F 02/10/24 00:00 Pulse 82 02/10/24 00:00 Resp 18 02/10/24 00:00 BP 119/60 02/10/24 00:00 Pulse Ox 99 02/10/24 00:00 O2 Del Method Room Air 02/10/24 00:00 O2 Flow Rate 4 02/09/24 15:02 BMI result Body Mass Index 23.7 Extrem: Other: Knee is wrapped in Toño wrap and in an immobilizer Dressings clean, dry, intact Patient reports mild tenderness to palpation about the surgery site Compartments soft, nontender Distal sensation intact Capillary refill brisk Procedures Date of Service Date of Service: 02/10/24 Progress Note: A&P Assessment and plan (1) Closed patellar sleeve fracture of right knee: Status: Acute Plan 1. Right patellar sleeve fracture status post open reduction internal fixation DOS 02/09/24 Patient appears to be recovering well postoperatively Patient is educated about the procedure that was performed yesterday Patient should continue to wear knee immobilizer Patient will be evaluated by Physical therapy next few days Continue all other recommendations per Medicine Patient will follow-up in our office 2 weeks postoperatively after discharge for staple removal and reassessment Time Spent With Patient Time: Total time managing care of this patient today ____ minutes. Quality Stroke Does the patient have a stroke diagnosis?: No VTE Prior VTE?: No VTE Risk Level:: Medical - moderate - high VTE Device Contraindication: Treatment Not Indicated VTE Drug Contraindication: N/A - Med Ordered
[2024-02-10] MEDS: Furosemide 20 MG TABLET PO (08:48)
[2024-02-10] MEDS: Acetaminophen 325 MG TABLET 650 MG PO ×3 (08:48→16:59)
[2024-02-10] MEDS: Finasteride 5 MG TABLET PO (08:48)
[2024-02-10] MEDS: carvediloL 6.25 MG TABLET PO ×2 (08:49→22:36)
[2024-02-10] MEDS: Losartan Potassium 50 MG TABLET 100 MG PO (08:49)
[2024-02-10] MEDS: Doxazosin Mesylate 2 MG TABLET 4 MG PO (08:49)
[2024-02-10] MEDS: 0.9 % Sodium Chloride Flush 3 ML SYRINGE IVFLUSH ×2 (08:49→17:00)
[2024-02-10] MEDS: NETARSUDIL 0.02% 1 EACH EYE-BOTH (08:50)
--- NOTE | 2024-02-10 10:53 | HO.POSTANES ---
Post Anesthesia Evaluation Post Anesthesia Evaluation Date of Service: 02/09/24 Vital Signs: Vital Signs Temp Pulse Resp BP Pulse Ox O2 Del Method 02/10/24 08:49 136/66 02/10/24 08:49 70 136/66 02/10/24 08:49 136/66 02/10/24 08:48 136/66 02/10/24 07:49 99.4 F 70 18 136/66 97 Room Air 02/10/24 00:00 97.2 F 82 18 119/60 99 Room Air Anesthesia: General Mental Status: Awake Pain Control: Satisfactory Nausea/Vomiting: None Hydration: Adequate Anesthesia-Related Issues: No Anes. Related Issues
--- NOTE | 2024-02-10 11:53 | HO.PM.IMPN ---
Subjective Subjective Date of Service: 02/10/24 Interval History: Seen and examined this morning Follow-up for patellar fracture POD 1 s/p ORIF right patella No overnight events, no specific complaints, pain is adequately controlled at this time Review of Systems Review of Systems: Yes all other systems are reviewed and are negative Constitutional Constitutional: Denies chills and Denies fever(s) Cardiovascular Cardiovascular: Denies chest pain, Denies palpitations and Denies dyspnea Respiratory Respiratory: Denies cough and Denies dyspnea Gastrointestinal Gastrointestinal: Denies abdominal pain, Denies nausea and Denies vomiting Endocrine Endocrine: Denies palpitations Physical Exam Vital Signs: Vital Signs: Last Vital Signs Temp 99.4 F 02/10/24 07:49 Pulse 70 02/10/24 08:49 Resp 18 02/10/24 07:49 BP 136/66 02/10/24 08:49 Pulse Ox 97 02/10/24 07:49 O2 Del Method Room Air 02/10/24 07:49 O2 Flow Rate 4 02/09/24 15:02 BMI result Body Mass Index 23.7 Const: General: cooperative, comfortable, no acute distress, alert and awake Nutritional Appearance: average body habitus Orientation/consciousness: patient oriented x3 Resp: Effort & Inspection: normal respiratory effort, able to speak in complete sentences, no respiratory distress and no use of accessory muscles Cardio: Rate: regular rate GI: Inspection: No distended Palpation (GI): Soft to palpation and nontender Neuro: General: patient oriented x3, moves all extremities and CN's II-XI intact bilaterally Extrem: Other: RLE wrapped in CHRISSY and in knee immobilizer Objective Data Active Medications Acetaminophen (Acetaminophen 325 Mg Tablet) 650 mg PO TIDWM [facility] Last Admin: 02/10/24 08:48 Dose: 650 mg Documented By: MONROE Atorvastatin Calcium (Atorvastatin Calcium 20 Mg Tablet) 20 mg PO BEDTIME [facility] Last Admin: 02/09/24 21:21 Dose: 20 mg Documented By: DONAVAN Calcium Carbonate (Calcium Carbonate 750 Mg Tab.Chew) 750 mg PO Q4H PRN PRN Reason: Heartburn Last Admin: 02/07/24 14:08 Dose: 750 mg Documented By: HAIDER Carvedilol (Carvedilol 6.25 Mg Tablet) 6.25 mg PO BID [facility]; Protocol Last Admin: 02/10/24 08:49 Dose: 6.25 mg Documented By: MONROE Doxazosin Mesylate (Doxazosin Mesylate 2 Mg Tablet) 4 mg PO DAILY [facility]; Protocol Last Admin: 02/10/24 08:49 Dose: 4 mg Documented By: MONROE Finasteride (Finasteride 5 Mg Tablet) 5 mg PO DAILY [facility] Last Admin: 02/10/24 08:48 Dose: 5 mg Documented By: MONROE Furosemide (Furosemide 20 Mg Tablet) 20 mg PO DAILY [facility]; Protocol Last Admin: 02/10/24 08:48 Dose: 20 mg Documented By: MONROE Cefazolin Sodium/Dextrose (Ancef) 2 gm in 50 mls @ 100 mls/hr IV POSTOP MELISSA Latanoprost (Latanoprost 0.005 % Ophth Jennifer 2.5 Ml Drops) 1 drop EYE-BOTH BEDTIME [facility] Last Admin: 02/09/24 22:26 Dose: Not Given Documented By: DONAVAN Non-Admin Reason: Med Not Available Losartan Potassium (Losartan Potassium 50 Mg Tablet) 100 mg PO DAILY [facility]; Protocol Last Admin: 02/10/24 08:49 Dose: 100 mg Documented By: MONROE Magnesium Hydroxide (Milk Of Magnesia 30 Ml Oral.Susp) 30 ml PO DAILY PRN PRN Reason: Constipation Melatonin (Melatonin 3 Mg Tablet) 6 mg PO BEDTIME PRN PRN Reason: Insomnia Last Admin: 02/07/24 21:38 Dose: 6 mg Documented By: ZAC Pt Own (Netarsudil [ Rhopressa] 0.02 % Drops) 1 drop EYE-BOTH DAILY [facility] Last Admin: 02/10/24 08:50 Dose: 1 drop Documented By: MONROE Omeprazole (Omeprazole 20 Mg Capsule.Dr) 20 mg PO BID@0630,1630 [facility] Last Admin: 02/10/24 06:08 Dose: 20 mg Documented By: DONAVAN Ondansetron HCl (Ondansetron Hcl 4 Mg/2 Ml Vial) 4 mg IVPUSH Q8H PRN PRN Reason: Nausea and Vomiting Oxycodone HCl (Oxycodone Hcl Immed Release 5 Mg Tablet) 5 mg PO Q6H PRN PRN Reason: Pain, Moderate(Pain Scale 4-6) Last Admin: 02/07/24 21:39 Dose: 5 mg Documented By: ZAC Sodium Chloride (0.9 % Sodium Chloride Flush 3 Ml Syringe) [facility] Last Admin: 02/10/24 08:49 Dose: 3 ml Documented By: MONROE Labs 02/10/24 06:27 02/10/24 06:27 Labs: Laboratory Results - last 24 hr 02/10/24 06:27 MCV 87.5 MCH 28.5 MCHC 32.5 RDW 14.9 Plt Count 144 L MPV 11.0 Absolute Nucleated RBC 0.000 Nucleated RBC % (auto) 0.0 Anion Gap 11 L Estim Creat Clear Calc 59.9 Estimated GFR > 60 Random Glucose 109 Calcium 9.0 Assessment and Plan (1) Closed patellar sleeve fracture of right knee: Status: Acute Plan An 88 years old male with PMH of Afib on Eliquis, hx CVA, CAD, Prostate Ca who presented to the hospital after fall at home. Right Patellar fracture 2/2 fall POD #1 s/p ORIF right patella Management as per Orthopedic Service Oxycodone PRN plan for lovenox x 48 hours and then transition back to home Eliquis PT eval - rec STR +ve Covid19 test positive from reported infection earlier this month 01/13 at home with no active symptoms suggestive of acute illness. DC isolation persistent Afib Eliquis on hold - plan lovenox x48 hrs then resume Eliquis rate controlled; continue Carvedilol Hx Prostate Ca Finasteride and Doxazosin HTN Losartan Thrombocytopenia Appears chronic DVT PPx- subq lovenox, then eliquis The patient will need ongoing hospital stay for treatment of patellar fracture and post surgery care Quality Stroke Does the patient have a stroke diagnosis?: No VTE Prior VTE?: No VTE Risk Level:: Medical - moderate - high VTE Device Contraindication: Treatment Not Indicated VTE Drug Contraindication: N/A - Med Ordered
[2024-02-10] MEDS: Enoxaparin Sodium 40 MG/0.4 ML SYRINGE SUBCUT (12:13)
--- NOTE | 2024-02-10 12:59 | MHC.CM.PN ---
EMR REVIEWED, CM MET W/PT AND CALLED PTS DTR/HCP/POA MARAMICHELE REDMONDMAGALIE [phone] [email or web address], ORIGINALLY MARA REQUESTED REFERRALS TO [facility], [facility], [place]. PT AND MARA AGREEABLE TO DC TO [facility] TOMORROW AFTER LUNCH, [facility]PDATED IN [facility] AND CM WILL CONT TO FOLLOW DC NEEDS.
[2024-02-10] MEDS: Atorvastatin Calcium 20 MG TABLET PO (22:36)
[2024-02-11] MEDS: Omeprazole 20 MG CAPSULE.DR PO (06:41)
[2024-02-11 08:00] VITALS: BP 120/57; PULSE 73; RESP 12; TEMP 36.6; O2SAT 97
--- NOTE | 2024-02-11 08:14 | P.DS_ITS ---
DS: Providers Provider Date of Service: 02/11/24 Date of admission: 02/07/24 13:18 Date of discharge: 02/11/24 Primary care physician: Sekou Anton MD Attending physician on admission: Deborah Torres Consults: 02/07/24 11:15 Consult to Orthopedics Stat Consulting Provider: [facility] [place] Reason for consultation: right patellar fracture Has provider been notified: Yes Attending physician on discharge: Arnulfo Puentes Discharging clinician: Carolyn Weston DS: Diagnosis Discharge Diagnosis (1) Closed patellar sleeve fracture of right knee: Status: Acute DS: Summary Hospital Course Hospital Course: HPI on admission by Dr. Torres 02/06: Chief Complaint: Fall, platella fracture An 88 years old male with PMH of Afib on Eliquis, hx CVA, CAD, Prostate Ca who presented to the hospital after fall at home. The patient was outside his patio when he lost balance and fell with no reported head injury or loss of consciousness. fell on his knee and felt more pain in the right knee which swollen after the incident. No chest pain, palpitations, SOB, nausea, vomiting, diarrhea or urinary symptoms. In ED images were consistent with closed patellar sleeve fracture in right knee. Tested positive for Covid, no symptoms of acute infection, he was tested positive earlier this month on 01/13 at home and did not get any treatment for it. Admitted for planned surgical intervention by Orthopedic team on Wednesday. Hospital course: 88 year old male admitted to hospitalist service for acute fracture of the R patella. Evaluted by orthopedic team and taken for ORIF on 02/08. Eliquis was held preoperatively and he was recommended for subcut lovenox to dc day of discharge and resume eliquis tomorrow 02/11. Seen by physical therapy recommending STR. Had positive covid test but due to reported prior infection on 01/13, no acute symptoms and isolation was ot continued. Will be discharged to [facility], anticipated length of stay for rehab less than 30 days. Right Patellar fracture 2/2 fall s/p ORIF right patella 02/[address] Frederick Pain management with oxycodone 5mg prn on discharge Resume eliquis tomorrow 83 PT eval - rec STR- plan for discharge to [facility] +ve Covid19 test positive from reported infection earlier this month 01/13 at home with no active symptoms suggestive of acute illness. DC isolation persistent Afib Eliquis on hold - treated with lovenox x48 hrs post op, resume Eliquis 02/11 rate controlled; continue Carvedilol Hx Prostate Ca Finasteride and Doxazosin HTN Losartan Thrombocytopenia Appears chronic Time Attestation Discharge Coordination Time (in mins): 40 Quality: Safe Use of Opioids Does Pt have an Active Cancer Diagnosis on the Problem List?: No Quality: Stroke Does the patient have a stroke diagnosis?: No Physical Exam Vital Signs: Vital Signs: Last Vital Signs Temp 97.9 F 02/11/24 08:00 Pulse 73 02/11/24 08:00 Resp 12 02/11/24 08:00 BP 120/57 L 02/11/24 08:00 Pulse Ox 97 02/11/24 08:00 O2 Del Method Room Air 02/11/24 08:00 O2 Flow Rate 4 02/09/24 15:02 BMI result Body Mass Index 23.7 Discharge Plan Discharge Anticipated Discharge Date/Time: 02/11/24 12:38 Patient Disposition: Xfer SNF Discharge Diagnosis: R patellar fracture Referrals: [facility] [Outside] - 1 Day (SHORT TERM REHAB) Shravan Frederick MD [Physician] - 1 Week Sekou Anton MD [Primary Care Provider] - 1 Week Discharge Medications: New oxycodone 5 mg Tablet 5 mg PO Q6H PRN (Reason: pain, severe) Qty: 20 0RF Rx Instructions: Partial Fill upon patient request. Continued finasteride 5 mg tablet 5 mg PO DAILY 90 Days Qty: 90 0RF latanoprost 0.005 % Drops 1 drp OPHTHALMIC (EYE) BEDTIME carvedilol 6.25 mg Tablet 6.25 mg PO BID omeprazole 20 mg Capsule,Delayed Release(Dr/Ec) 20 mg PO BID@0630,1630 apixaban 5 mg Tablet 5 mg PO BID simvastatin 40 mg tablet 40 mg PO BEDTIME Qty: 30 0RF acetaminophen [Tylenol] 325 mg capsule 325 mg PO Q4H PRN (Reason: pain) Qty: 30 0RF doxazosin 4 mg tablet 4 mg PO DAILY losartan 100 mg tablet 100 mg PO DAILY Rhopressa 0.02 % drops 1 drp ophthalmic (eye) DAILY furosemide 20 mg tablet 20 mg PO DAILY Discharge Orders: Discharge Order (Routine); Ordered 02/11/24 Ordered By: Carolyn Weston Diet: Advance to usual diet Activity on Discharge: As tolerated Stand Alone Forms: Patient Portal Discharge page Print Language: Mongolian Care Plan Goals: Transfer to SNF for STR due to R patellar fracture Outpt follow up with ortho for R patellar fracture and distal phalynx fx Health Concerns: R patellar fracutre s/p ORIF 02/06 Distal phalynx fx R thumb Plan of Treatment: S/p ORIF R patella. Treated post operatively with lovenox. Resume eliquis 83 am ? Keep surgical dressings clean and dry ? Ice, compression, elevation ? Ankle pumps ? Ambulate in the brace locked in extension ? Do not actively bend your knee; support your surgical side when performing transfers (i.e. sitting to laying down) ? Brace locked and on at all times, crutches ? Weight bearing as tolerated ? When going up the stairs, make sure you are leading with the non-surgical side, when going down the stairs, make sure you are leading with the crutches and surgical side. Followup with orthopedics 02/24/24 at 11:15 am Assessment: See above, see dc summary
--- NOTE | 2024-02-11 08:18 | P.PNOP_ITS ---
Subjective Subjective Date of Service: 02/11/24 Interval history: POD2 s/p right patella ORIF Patient is resting in bed comfortably No overnight events Pain is managed No additional complaints Physical Exam Vital Signs: Vital Signs: Last Vital Signs Temp 97.9 F 02/11/24 08:00 Pulse 73 02/11/24 08:00 Resp 12 02/11/24 08:00 BP 120/57 L 02/11/24 08:00 Pulse Ox 97 02/11/24 08:00 O2 Del Method Room Air 02/11/24 08:00 O2 Flow Rate 4 02/09/24 15:02 BMI result Body Mass Index 23.7 Const: General: cooperative, healthy appearing and no acute distress Resp: Effort & Inspection: normal respiratory effort and able to speak in complete sentences Cardio: Rate: regular rate Peripheral pulses: Peripheral pulses 2+ throughout GI: Palpation (GI): Soft to palpation Skin: Lesions: no lesions Rashes: no rashes Extrem: Other: right knee dressing is c/d/i. Able to dorsi/plantar flex. Calf is supple and nontender. Sensation intact. Pedal pulse intact. Procedures Date of Service Date of Service: 02/11/24 Progress Note: A&P Assessment and plan (1) Closed patellar sleeve fracture of right knee: Status: Acute Assessment and Plan: Continue pain mgmnt Continue Lovenox for dvt ppx begin PT for right patella ORIF - brace locked in extension Dispo planning-PT, pain mgmnt, rehab placement - discharge to rehab once medica lly stable (2) Fall: Status: Acute Time Spent With Patient Time: Total time managing care of this patient today ____ minutes. Quality Stroke Does the patient have a stroke diagnosis?: No VTE Prior VTE?: No VTE Risk Level:: Medical - moderate - high VTE Device Contraindication: Treatment Not Indicated VTE Drug Contraindication: N/A - Med Ordered
--- NOTE | 2024-02-11 09:29 | MHC.CM.PN ---
IMM 02/11/24 DELIVERED TO BEDSIDE, ANTIC PT WILL BE MEDDICALLY CLEARED FOR DC TO STR AT [facility] FOR BLS TRANSPORT.
[2024-02-11 10:12] VITALS: BP 120/57; PULSE 73
[2024-02-11] MEDS: Furosemide 20 MG TABLET PO (10:12)
[2024-02-11] MEDS: carvediloL 6.25 MG TABLET PO (10:12)
[2024-02-11] MEDS: Finasteride 5 MG TABLET PO (10:12)
[2024-02-11] MEDS: Losartan Potassium 50 MG TABLET 100 MG PO (10:12)
[2024-02-11] MEDS: Doxazosin Mesylate 2 MG TABLET 4 MG PO (10:12)
[2024-02-11] MEDS: Acetaminophen 325 MG TABLET 650 MG PO ×2 (10:12→13:35)
[2024-02-11] MEDS: NETARSUDIL 0.02% 1 EACH EYE-BOTH (10:13)
[2024-02-11] MEDS: 0.9 % Sodium Chloride Flush 3 ML SYRINGE IVFLUSH (10:13)
[2024-02-11 11:10] VITALS: BP 120/57; PULSE 73
[2024-02-11] MEDS: Enoxaparin Sodium 40 MG/0.4 ML SYRINGE SUBCUT (13:35)
--- NOTE | 2024-02-16 09:08 | P.OP_ITS ---
Operative Note Operative Note Date of Service: 02/16/24 Narrative: Date of Service: 02/09/24 Pre-op diagnosis: right patella fracture Post-op diagnosis: same Procedure: ORIF right patella Implants: Schwab [employer] Nephew Helacoil double loaded x2, Micro-raptor 2.75 x 2 Surgeon: Shravan Frederick MD Anesthesia: GETA and regional Was an Mail Distributor used for this Procedure?: Yes Mail Distributor: Ramonita Gaston Estimated blood loss (mL): 75 Tourniquet time (min): 45 IV fluids (mL): 800 Pathology: none sent Condition: stable Disposition: PACU Patient was brought to the operating room and placed supine on the surgical table. She was prepped and draped in standard sterile fashion and a time out was called to identify proper site, proper procedure and IV antibiotics per weight were administered. I began by making a ~6 cm incision over the patella and patellar tendon. I dissected down to the fascia overlying tendon. The distal pole of the patella with attached to the tendon and the retinaculum medially was disrupted. I irrigated and debrided any necrotic tissue and clot. The distal bony fragment was not large enough to hold a screw but the patellar bone quality was surprisingly good. I inserted two double loaded Helacoil 4.75 anchors (Schwab and Nephew). I then took the attached suture and ship stitched this through the patellar tendon. I then inserted two Microraptor suture anchors into the superior pole of the patella and brought the 4 sutures limbs of under the distal bony piece and over the patella. I then ranged the knee wasn was satisfied with the stability of the construct. The repair was anatomic. I oversewed the retinaculum with a fiber wire and then irrigated copiously. The fascia was closed and the sub q was closed and the skin with kusum. A SANDEEP vacuum assisted dressing was applied given the eccymotic skin. Sterile dressing were applied and the patient was placed in a locked brace in extension and extubated and brought to the recovery room in stable condition. There were no known complications.
== END 2024-02-11 14:22 | disposition skilled nursing facility (03) | DRG 515 ==
LOC: HO.ED 02-07 11:20 → HO.EDOVER 02-07 13:46 → HO.IMC 02-07 19:39
PROVIDERS: Nurse Practitioner Family; Orthopaedic Surgery; Physician Assistant Medical; Admitting Provider Student in an Organized Health Care Education/Training Program; Emergency Provider Emergency Medicine; PCP Internal Medicine Endocrinology, Diabetes & Metabolism; Visit Provider Physician Assistant
PROC: (CPT 27524; principal; 2024-02-09 13:00)
DX: S82.091A Other fracture of right patella, initial encounter for closed fracture (principal); U07.1 COVID-19; I48.19 Other persistent atrial fibrillation; C61 Malignant neoplasm of prostate; D69.6 Thrombocytopenia, unspecified; I10 Essential (primary) hypertension; W19.XXXA Unspecified fall, initial encounter; G89.18 Other acute postprocedural pain; I25.10 Atherosclerotic heart disease of native coronary artery without angina pectoris; R29.6 Repeated falls; Z95.5 Presence of coronary angioplasty implant and graft; Z87.891 Personal history of nicotine dependence; Z79.01 Long term (current) use of anticoagulants; Z79.899 Other long term (current) drug therapy
CPT/HCPCS: 36415; 70450; 72125; 73140; 73560; 73564; 80048; 80053; 84484; 85025; 85027; 85610; 86850; 86900; 86901; 87635; 93005; 97162; 97166; 97530; 99285; C1713; J0131; J0665; J0690; J1100; J1650; J2371; J2598; J2704; J2795; J3010

== ENCOUNTER → 2024-02-06 15:39 | Outpatient (BNV) | payer MEDICARE, OTHER, SELFPAY | PROVIDERS: Emergency Provider Emergency Medicine; Visit Provider Internal Medicine Cardiovascular Disease | DX: I48.91 Unspecified atrial fibrillation (principal) | CPT/HCPCS: 93010 ==

== ENCOUNTER → 2024-02-07 13:18 | Outpatient (BNV) | payer MEDICARE, OTHER, SELFPAY | PROVIDERS: Admitting Provider Student in an Organized Health Care Education/Training Program; Emergency Provider Emergency Medicine; Visit Provider Student in an Organized Health Care Education/Training Program | DX: S82.091A Other fracture of right patella, initial encounter for closed fracture (principal); W19.XXXA Unspecified fall, initial encounter | CPT/HCPCS: 99223; 99232; 99239 ==

== ENCOUNTER → 2024-02-07 13:18 | Outpatient (BNV) | payer MEDICARE, OTHER, SELFPAY | PROVIDERS: Admitting Provider Student in an Organized Health Care Education/Training Program; Emergency Provider Emergency Medicine; PCP Internal Medicine Endocrinology, Diabetes & Metabolism; Visit Provider Orthopaedic Surgery | DX: S82.091A Other fracture of right patella, initial encounter for closed fracture (principal) | CPT/HCPCS: 27524; 99024; 99222 ==

== ENCOUNTER 2024-02-24 10:11 | Outpatient (REF) | payer MEDICARE, OTHER, SELFPAY | END 2024-02-24 10:12 | disposition home or self-care (01) | LOC: HO.HOSX 10:11 | PROVIDERS: Visit Provider Physician Assistant | DX: S82.091A Other fracture of right patella, initial encounter for closed fracture (principal); Z98.890 Other specified postprocedural states | CPT/HCPCS: 99212 ==

== ENCOUNTER 2024-02-24 11:50 | Outpatient (AMB) | payer MEDICARE, OTHER, SELFPAY ==
--- NOTE | 2024-02-24 11:52 | MHC.OFFVIS ---
Intake Visit Reasons: PO - right patella ORIF 02/09/24 NE Intake Note: Winston is a 88 year old male who presents today for a post op appointment s/p right patella ORIF 02/09/24 with NE. Patient reports he is doing well. Accompanied by: daughter in law Allergies dabigatran etexilate [From PRADAXA] Allergy (Intermediate, Verified 02/06/24 14:15) DIZZINESS AND SHORTNESS OF BREATH HPI HPI PO - right patella ORIF 02/09/24 NE: Details: 88-year-old male who presents in the office today 15 days status post right patella ORIF, which was performed on 02/09/[address] Frederick. ? ? While in the office today, the patient reports he is doing well.? [facility] Medical History Persistent atrial fibrillation Cerebral infarction Afib Cerebrovascular accident Coronary artery disease Rising PSA following treatment for malignant neoplasm of prostate Erectile dysfunction following radical prostatectomy Prostate cancer Surgical History Hx of inguinal hernia repair Hx of aortic aneurysm repair Hx of right coronary artery stent placement Hx of hernia repair Hx of prostatectomy Family History Unknown No problems noted. Social History Household Members: None Housing: House Do you presently have visiting nurse or other home services: No Alcohol intake: current Alcohol intake frequency: a few times a month Alcohol type: wine Patient Tobacco Use Status: Former Tobacco user e-Cigarette/Vaping Use: Never Used Second Hand Smoke Exposure: No Advance Directives Date on File: 12/24/20 service: No Current occupational status: retired Review of Systems Const All systems reviewed & are unremarkable except as noted in HPI and below Physical Exam Const General: cooperative, healthy appearing and no acute distress Resp Effort & Inspection: normal respiratory effort and able to speak in complete sentences Cardio Rate: regular rate Peripheral pulses: Peripheral pulses 2+ throughout GI Palpation (GI): Soft to palpation Skin Lesions: no lesions Rashes: no rashes Extrem Other: Right knee: Incision site is clean, dry, and intact. Gladys are intact. No surrounding erythema or drainage. No signs of infection. Able to dorsiflex and plantarflex. NVI.? Assessment & Plan Assessment & Plan (1) Closed patellar sleeve fracture of right knee: Comment: Right patella ORIF on 02/09/[address] Frederick. Code(s): S82.091A - Other fracture of right patella, initial encounter for closed fracture Category: Medical Plan Mr. Tipton is an 88-year-old male who presents in the office today 15 days status post right patella ORIF, which was performed on 02/09/[address] Frederick. ? ? While in the office today, the patient reports he is doing well.? ? Dr. Frederick was available to see the patient with me while in the office today. [place] were removed and steri-stripes were applied. He was placed back into the immobilizing knee brace. He will follow-up in four weeks with Dr. Frederick, or sooner if needed. ? Patient Instructions: Scribed by Priya Fuller medical stenographer, for Ramonita Gaston PA-C on 02/24/2024 at 11:55 am, EST.? Coding Level of Care Code Global (76995) Diagnoses Closed patellar sleeve fracture of right knee S82.091A
== END 2024-02-24 13:49 | disposition home or self-care (01) ==
LOC: HO.HOS 11:50
PROVIDERS: PCP Internal Medicine Endocrinology, Diabetes & Metabolism; Visit Provider Physician Assistant
DX: S82.091A Other fracture of right patella, initial encounter for closed fracture (principal)
CPT/HCPCS: 99024

== ENCOUNTER 2024-03-06 13:14 | Outpatient (AMB) | payer MEDICARE, OTHER, SELFPAY ==
--- NOTE | 2024-03-06 14:08 | A.OFFVIS_ITS ---
Intake Visit Reasons: PO - Left Patella ORIF - ?post op displacement Intake Note: Winston is a 88 year old male who presents today for a post op appointment s/p right patella ORIF 02/09/24 with NE. Patient reports increase of pain and swelling since his last office visit. He had xrays done at facility and was told having a new fracture. He continues working with PT. Denies any injury. Accompanied by: EX Spouse Allergies dabigatran etexilate [From PRADAXA] Allergy (Intermediate, Verified 03/06/24 14:13) DIZZINESS AND SHORTNESS OF BREATH HPI HPI PO - Left Patella ORIF - ?post op displacement: Details: 88-year-old male who returns to the office today for post-op right patella ORIF, 02/09/[address] Frederick. He states he has increased pain and swelling since his last visit. He reports he sustained a fall. He continues to work with physical therapy as instructed. [facility] Medical History Persistent atrial fibrillation Cerebral infarction Afib Cerebrovascular accident Coronary artery disease Rising PSA following treatment for malignant neoplasm of prostate Erectile dysfunction following radical prostatectomy Prostate cancer Surgical History Hx of inguinal hernia repair Hx of aortic aneurysm repair Hx of right coronary artery stent placement Hx of hernia repair Hx of prostatectomy Family History Unknown No problems noted. Social History Household Members: None Housing: House Do you presently have visiting nurse or other home services: No Alcohol intake: current Alcohol intake frequency: a few times a month Alcohol type: wine Patient Tobacco Use Status: Former Tobacco user e-Cigarette/Vaping Use: Never Used Second Hand Smoke Exposure: No Advance Directives Date on File: 12/24/20 service: No Current occupational status: retired Review of Systems Const All systems reviewed & are unremarkable except as noted in HPI and below Physical Exam Extrem Other: Right knee: Incision well healed. He does have moderate sized joint effusion and palpable defect over the distal pole of patella. NVI. Results Reviewed Results Reviewed: X-rays of right knee the obtained in the office today show redemonstration of interior pull patellar fracture. Assessment & Plan Assessment & Plan (1) Closed patellar sleeve fracture of right knee: Comment: Right patella ORIF on 02/09/[address] Frederick. Code(s): S82.091A - Other fracture of right patella, initial encounter for closed fracture Category: Medical Plan Dr. Frederick was available to see the patient with me today. Patient?s friend and son were also available in today?s visit. We discussed the extent of injury at length and discussed non operative management which at this time is not recommended given the quality of bone and also given the amount of time he has been in extension , he would develop significant stiffness in the knee limiting his ability to performed daily activities. He will continue to wear a brace locked in extension weight bearing as tolerated. The brace should be locked at all times. He will also on isometric quad exercises and see me back in 2 weeks, sooner if needed. Orders: Orders XR knee LT 2V 03/06/24 M25.562 - Pain in left knee Patient Instructions: Scribed for Antwan Colvin PA-C, by Sagar Hatfield medical imaging technologist, on 03/06/2024 at 1:00 PM EST.? I, Antwan Colvin PA-C, have personally reviewed and agree with the information entered by the scribe. Coding Level of Care Code Global (45826) Diagnoses Closed patellar sleeve fracture of right knee S82.091A
== END 2024-03-06 15:23 | disposition home or self-care (01) ==
LOC: HO.HOS 13:14
PROVIDERS: PCP Internal Medicine Endocrinology, Diabetes & Metabolism; Visit Provider Physician Assistant
DX: S82.091A Other fracture of right patella, initial encounter for closed fracture (principal)
CPT/HCPCS: 99024

== ENCOUNTER 2024-03-06 13:24 | Outpatient (REF) | payer MEDICARE, OTHER, SELFPAY ==
--- NOTE | ~2024-03-06 | XR_ITS ---
EXAMINATION: XR KNEE, LEFT CLINICAL INFORMATION: Left knee pain. COMPARISON: None available. TECHNIQUE: AP and lateral views of the left knee. FINDINGS: Minimal medial compartment joint space narrowing. Tiny patellofemoral compartment marginal osteophytes. Elevation of the patella with thickening of the patellar tendon and an irregular, corticated ossification along the undersurface of the proximal patella measuring up to 3 cm in greatest dimension. Findings likely represent a chronic partial tear and associated avulsion injury. Thickening of the distal quadriceps tendon, likely indicating chronic tendinopathy. Superior and inferior patellar enthesophytes. No joint effusion. Prominent atherosclerotic calcifications. XR/XR knee LT 2V IMPRESSION: 1. Elevation of the patella with thickening of the patellar tendon and an irregular, corticated ossification along the undersurface of the proximal patella, likely representing a chronic partial tear and associated avulsion injury. Thickening of the distal quadriceps tendon, likely indicating chronic tendinopathy. 2. Minimal medial and patellofemoral compartment osteoarthritis. Electronically signed by: Te Daniel MD 03/10/2024 11:05 AM EDT
== END 2024-03-06 13:25 | disposition home or self-care (01) ==
LOC: HO.HOSX 13:24
PROVIDERS: Visit Provider Physician Assistant
DX: M25.562 Pain in left knee (principal); S82.091D Other fracture of right patella, subsequent encounter for closed fracture with routine healing
CPT/HCPCS: 73560; 99212

== ENCOUNTER 2024-03-23 10:48 | Outpatient (REF) | payer MEDICARE, OTHER, SELFPAY ==
--- NOTE | ~2024-03-23 | XR_ITS ---
Exam: X-ray right knee. INDICATION: Pain Comparison: February 09, 2024, February 06, 2024 TECHNIQUE: 3 views right knee. FINDINGS: Diffuse demineralization. Extensive vascular calcifications. Moderate to large joint effusion soft tissue swelling. There is an ossific fragment inferior to the patella which represents a change compared with exam of 02/09/2024 and is more similar in appearance compared with the patellar fracture demonstrated on exam of 01/10, concerning for separation of previously apposed fracture fragments. Mild degenerative changes in the medial and lateral compartments. XR/XR knee RT 2V IMPRESSION: Ossific fragment inferior to the patella which represents a change since exam of 02/09/2024 and is more similar in appearance compared with the patellar fracture demonstrated on exam of 02/05, concerning for separation of previously apposed fracture fragments. This study was presented today March 27, 2024 for interpretation. Stat results provided at this time as requested by referring provider. Electronically signed by: Tomeka Arndt MD 03/27/2024 02:14 PM EDT
== END 2024-03-23 10:49 | disposition home or self-care (01) ==
LOC: HO.HOSX 10:48
PROVIDERS: Visit Provider Physician Assistant
DX: M25.561 Pain in right knee (principal); S82.091D Other fracture of right patella, subsequent encounter for closed fracture with routine healing
CPT/HCPCS: 73560; 99212

== ENCOUNTER 2024-03-23 11:28 | Outpatient (AMB) | payer MEDICARE, OTHER, SELFPAY ==
--- NOTE | 2024-03-23 11:31 | MHC.OFFVIS ---
Intake Visit Reasons: PO - right patella ORIF 02/09/24 NE Intake Note: Winston is a 88 year old male who presents today for a post op appointment s/p right patella ORIF 02/09/24 with NE. Patient noticed some swelling and warmth to the tough on his knee about 2 - 3 days ago. He states little to no pain in his knee. Allergies dabigatran etexilate [From PRADAXA] Allergy (Intermediate, Verified 03/23/24 11:33) DIZZINESS AND SHORTNESS OF BREATH HPI HPI PO - right patella ORIF 02/09/24 NE: Details: 88-year-old male who presents in the office today 6 weeks status post right patella ORIF, which was performed on 02/09/[address] Frederick. The patient was last seen in the office on 03/06/24 due to increased pain and edema status post a fall. It was recommended to treat the new injury non-operatively due to the quality of the bone and the amount of time the right lower extremity had been in extension. He was instructed to continue to wear the brace locked in extension and to weight bear as tolerated. ? ? While in the office today, the patient reports noticing edema and warmth in his right knee. The states this began about 2-3 days ago. He reports having little to no pain in the right knee. ? [facility] Medical History Persistent atrial fibrillation Cerebral infarction Afib Cerebrovascular accident Coronary artery disease Rising PSA following treatment for malignant neoplasm of prostate Erectile dysfunction following radical prostatectomy Prostate cancer Surgical History Hx of inguinal hernia repair Hx of aortic aneurysm repair Hx of right coronary artery stent placement Hx of hernia repair Hx of prostatectomy Family History Unknown No problems noted. Social History Household Members: None Housing: House Do you presently have visiting nurse or other home services: No Alcohol intake: current Alcohol intake frequency: a few times a month Alcohol type: wine Patient Tobacco Use Status: Former Tobacco user e-Cigarette/Vaping Use: Never Used Second Hand Smoke Exposure: No Advance Directives Date on File: 12/24/20 service: No Current occupational status: retired Review of Systems Const All systems reviewed & are unremarkable except as noted in HPI and below Physical Exam Const General: cooperative, healthy appearing and no acute distress Resp Effort & Inspection: normal respiratory effort and able to speak in complete sentences Cardio Rate: regular rate Peripheral pulses: Peripheral pulses 2+ throughout GI Palpation (GI): Soft to palpation Skin Lesions: no lesions Rashes: no rashes Extrem Other: Right knee: Incision well healed. He does have moderate sized joint effusion and palpable defect over the distal pole of patella. NVI. Assessment & Plan Assessment & Plan (1) Closed patellar sleeve fracture of right knee: Comment: Right patella ORIF on 02/09/[address] Frederick. Code(s): S82.091A - Other fracture of right patella, initial encounter for closed fracture Category: Medical Plan Mr. Tipton is an 88-year-old male who presents in the office today 6 weeks status post right patella ORIF, which was performed on 02/09/[address] Frederick. The patient was last seen in the office on 03/06/24 due to increased pain and edema status post a fall. It was recommended to treat the new injury non-operatively due to the quality of the bone and the amount of time the right lower extremity had been in extension. He was instructed to continue to wear the brace locked in extension and to weight bear as tolerated. ? ? While in the office today, the patient reports noticing edema and warmth in his right knee. The states this began about 2-3 days ago. He reports having little to no pain in the right knee.? ? Dr. Frederick was available to see the patient with me while in the office today and a collaberative treatment plan was made. We again addressed the non-operative treatment plan. He was provided with a playmaker knee brace, off the shelf, locked to prevent any motions past 60 degrees. He must wear the brace when ambulating. However, he can remove it during PT to work on exercises. The patient may weight bear as tolerated with the knee brace on and with the use of a walker. Follow-up will be in [address] Frederick, or sooner if needed. ? ? X-rays of the right knee which were obtained while in the office today and were reviewed by me, Ramonita Gaston PA-C, redemonstrated a patellar fracture that has stabilized. ? Orders: Orders XR knee RT 2V Today M25.569 - Pain in unspecified knee Patient Instructions: Scribed by Priya Fuller, medical center manager, for Ramonita Gaston PA-C on 03/23/2024 at 11:32 am, EST.? Coding Level of Care Code Global (98074) Diagnoses Closed patellar sleeve fracture of right knee S82.091A
== END 2024-03-23 12:49 | disposition home or self-care (01) ==
PROVIDERS: PCP Internal Medicine Endocrinology, Diabetes & Metabolism; Visit Provider Physician Assistant
DX: S82.091A Other fracture of right patella, initial encounter for closed fracture (principal)
CPT/HCPCS: 99024

== ENCOUNTER 2024-05-04 12:24 | Outpatient (REF) | payer MEDICARE, OTHER, SELFPAY ==
--- NOTE | ~2024-05-04 | XR_ITS ---
EXAMINATION: XR KNEE RIGHT 3 VIEWS CLINICAL INFORMATION: Pain in right knee M25.561. COMPARISON: XR Right knee 03/23/2024 TECHNIQUE: Three views of the right knee. FINDINGS: Examination again demonstrates a distracted avulsion fracture involving the inferior pole of the patella. The fracture fragments now appear distracted approximately 3 cm, having been distracted approximately 1.3 cm on March 23, 2024. Associated soft tissue swelling. No other fracture or dislocation is appreciated. No lytic or sclerotic bony lesion is seen. No periosteal reaction is noted. Mild chondrocalcinosis. Mild disc space narrowing predominantly involving the medial compartment. Significant arterial calcification. XR/XR knee RT 3V IMPRESSION: Findings as above. Electronically signed by: Rich Curry MD 06/21/2024 01:28 PM [facility]
== END 2024-05-04 12:25 | disposition home or self-care (01) ==
LOC: HO.HOSX 12:24
PROVIDERS: Visit Provider Orthopaedic Surgery
DX: M25.561 Pain in right knee (principal); S82.091D Other fracture of right patella, subsequent encounter for closed fracture with routine healing; Z98.890 Other specified postprocedural states
CPT/HCPCS: 73562; 99212

== ENCOUNTER 2024-05-04 13:25 | Outpatient (AMB) | payer MEDICARE, OTHER, SELFPAY ==
--- NOTE | 2024-05-04 13:29 | MHC.OFFVIS ---
Intake Visit Reasons: PO - right patella ORIF 02/09/24 NE Intake Note: Winston is a 88 year old male who presents today for a post op appointment s/p right patella ORIF 02/09/24 with NE. Allergies dabigatran etexilate [From PRADAXA] Allergy (Intermediate, Verified 03/23/24 11:33) DIZZINESS AND SHORTNESS OF BREATH HPI HPI PO - right patella ORIF 02/09/24 NE: Details: Winston is a 88 year old male who presents today for a post op appointment s/p right patella ORIF 02/09/24 with NE. His surgery went well but was complicated by failure fixation and patient presented bending his knee with loss of fracture reduction. He is here today with his family. He states he feels well and is able to walk but with a walker and feels like his leg is giving way. [facility] Medical History Persistent atrial fibrillation Cerebral infarction Afib Cerebrovascular accident Coronary artery disease Rising PSA following treatment for malignant neoplasm of prostate Erectile dysfunction following radical prostatectomy Prostate cancer Surgical History Hx of inguinal hernia repair Hx of aortic aneurysm repair Hx of right coronary artery stent placement Hx of hernia repair Hx of prostatectomy Family History Unknown No problems noted. Social History Household Members: None Housing: House Do you presently have visiting nurse or other home services: No Alcohol intake: current Alcohol intake frequency: a few times a month Alcohol type: wine Patient Tobacco Use Status: Former Tobacco user e-Cigarette/Vaping Use: Never Used Second Hand Smoke Exposure: No Advance Directives Date on File: 12/24/20 service: No Current occupational status: retired Physical Exam Extrem Other: Incision well healed. There is a large gap at the distal aspect of his patella between the patellar tendon and the patella. This is reducible and extension but worsens drastically with flexion. Results Reviewed Results Reviewed: I personally reviewed relevant radiographs. Loss of fixation distal pole of the patella with patella Thatcher Assessment & Plan Assessment & Plan (1) Closed patellar sleeve fracture of right knee: Comment: Right patella ORIF on 02/09/[address] Frederick. Code(s): S82.091A - Other fracture of right patella, initial encounter for closed fracture Category: Medical Plan: This is an 88-year-old gentleman with a displaced distal pole avulsion fracture resulting in loss of the extensor mechanism of the right knee. I had a long discussion with him and his family about options. Surgery is an option but he would almost certainly lose some flexion it would require significant time immobilized and I think the only way we could do that would be a cast. I am not sure this is realistic and I think the possibility of severe motion loss is high. I think the risks outweigh the benefits. At this point in time I recommend a drop lock knee brace and continue weight-bearing activity with a walker Orders: Orders XR knee RT 3V 05/04/24 M25.561 - Pain in right knee Medications: New [Drop lock knee brace] As directed 1 ea 0RF S82.091A - Other fracture of right patella, initial encounter for closed fracture Coding Level of Care Code Global (29321) Diagnoses Closed patellar sleeve fracture of right knee S82.091A
== END 2024-05-04 14:17 | disposition home or self-care (01) ==
PROVIDERS: PCP Internal Medicine Endocrinology, Diabetes & Metabolism; Visit Provider Orthopaedic Surgery
DX: S82.091A Other fracture of right patella, initial encounter for closed fracture (principal)
CPT/HCPCS: 99024